=== PATIENT | male | born 1960 | race Caucasian/White ===

== ENCOUNTER → 2016-11-29 | Outpatient (CLI) | payer OTHER ==
[2016-11-29 14:53] LABS: CHCM 35.5; HCT 44.5 % (39.0-53.0); HDW 2.68; MCH 31.5 pg (25.0-35.0); MCHC 35.9 g/dL (31.0-37.0); MCV 87.7 fL (80.0-100.0); Mean Platelet Volume 7.3; RBC 5.07 m/uL (4.30-5.90); RDW 13.5 % (11.5-15.5); WBC 7.6 k/uL (3.8-10.6)
[2016-11-29 14:55] LABS: Appearance,Urine Clear (Clear); Bacteria,Urine Rare /hpf; Bilirubin,Urine Negative (Negative); Glucose,Urine (UA) Negative (Negative); Ketones,Urine Negative (Negative); Leukocyte Esterase,Urine Negative (Negative); Nitrite,Urine Negative (Negative); PH, Urine 5.5 (5.0-8.0); Particle Count 1096; Protein,Urine Negative (Negative); RBC,Urine 1 /hpf (0-5); Specific Gravity,Urine 1.019 (1.001-1.035); UA Billing (MACRO vs. MICRO) MICRO; WBC,Urine 1 /hpf (0-5)
[2016-11-29 15:00] LABS: ALT 37 U/L (21-72); AST 29 U/L (17-59); Alkaline Phosphatase 69 U/L (38-126); Anion Gap 9 mmol/L; Blood Urea Nitrogen 18 mg/dL (9-20); Calcium 9.1 mg/dL (8.4-10.2); Carbon Dioxide 26 mmol/L (22-30); Chloride 109 mmol/L (98-107); Glucose 149 mg/dL (74-99); Non-African American GFR(MDRD) 60 (>60 ml/min/1.73 sqM); Potassium 4.4 mmol/L (3.5-5.1); Sodium 144 mmol/L (137-145); Total Bilirubin 1.1 mg/dL (0.2-1.3); Total Protein 6.9 g/dL (6.3-8.2)
[2016-11-29 15:02] LABS: INR 1.1 (<1.1); Partial Thromboplastin Time 24.7 sec (22.0-30.0); Prothrombin Time 10.7 sec (9.0-12.0)
== END | disposition home or self-care (01) ==
LOC: LABPAT 14:15
PROVIDERS: ATTEND Orthopaedic Surgery
DX: Z01.810 Encounter for preprocedural cardiovascular examination (principal); Z01.812 Encounter for preprocedural laboratory examination
CPT/HCPCS: 80053; 81001; 85027; 85610; 85730; 87070

== ENCOUNTER 2016-12-03 12:09 | Inpatient (IN) | payer OTHER ==
[2016-11-30 16:40] VITALS: BMI 36.6
[~2016-12-03 12:09] MED LIST: ACETAMINOPHEN TAB 500 MG TAB PO ONE; HYDROmorphone 1 MG/ML 1 ML SYRINGE IVP PRN; LIDOCAINE 1% 20 ML VIAL (10MG/ML) FOR IV START INTRADERMA PRN; MELOXICAM 7.5 MG TAB PO ONE; MIDAZOLAM 2 MG/2 ML VIAL IV PRN; ONDANSETRON 4 MG/2 ML VIAL IVP ONE; ROPIVACAINE 246.25 MG, EPINEPHrine 0.5 MG, KETOROLAC 30 MG, cloNIDine HCL/PF 80 MCG, WA... MISCELLANE ONE; TRANEXAMIC ACID 1,000 MG in SODIUM CHLORIDE 0.9% 100 ML IVPB ONE; ceFAZolin 3 GM in SODIUM CHLORIDE 0.9% 100 ML IVPB ONE; fentaNYL (PF) 50 MCG/ML 20 ML VIAL IVP PRN
[2016-12-03] MEDS: LACTATED RINGERS 1,000 ML IV SCH (13:07)
[2016-12-03] MEDS ORDERED: PROPOFOL 10 MG/ML 20 ML VIAL IV ONE (15:04)
[2016-12-03] MEDS ORDERED: MIDAZOLAM 2 MG/2 ML VIAL ONE (15:04)
[2016-12-03] MEDS ORDERED: fentaNYL (PF) 50 MCG/ML 2 ML AMP ONE (15:04)
[2016-12-03] MEDS ORDERED: LIDOCAINE 1% INJ 10MG/ML (20 ML MDV) ONE (15:04)
[2016-12-03] MEDS ORDERED: PHENYLEPHRINE-0.9% NACL SYG 1 MG/10 ML SYRINGE ONE (15:04)
[2016-12-03] MEDS ORDERED: diphenhydrAMINE 50 MG/ML 1 ML VIAL ONE (15:04)
[2016-12-03] MEDS ORDERED: TRANEXAMIC ACID 1,000 MG/10 ML VIAL ONE (15:04)
[2016-12-03] MEDS ORDERED: SODIUM CHLORIDE 0.9% 100 ML BAG ONE (15:04)
[2016-12-03] MEDS ORDERED: ROPIVACAINE 1,100 MG, SODIUM CHLORIDE 0.9% 330 ML MISCELLANE PRN ×2 (15:10)
--- NOTE | 2016-12-03 15:11 | P.ONQ ---
Anesthesiology Proc Note - PNB - Peripheral Nerve Block Performed Left Adductor Canal Indication: Acute Post-Operative Pain, Requested by physician (kar [email or web address]) Sedation Type: Sedate with meaningful contact maintained Preparation: Sterile Dressing Position: Supine Catheter: Indwelling Needle Types: Other (see comment) (tomás) Needle Size: 100mm (4") Needle Gauge: 18 Technique: Ultrasound Injectate: 0.5% Ropivacaine (see comment for volume) (22cc) Blood Aspirated: No Pain Paresthesia on Injection Noted: No Resistance on Injection: Normal Events: Uneventful and Well Tolerated
[2016-12-03] MEDS ORDERED: CLINDAMYCIN 1,800 MG in SODIUM CHLORIDE 0.9% IRRIGATIO 3,000 ML IRRIGATION ONE (15:51)
[2016-12-03] MEDS ORDERED: LACTATED RINGERS 1,000 ML IV ONE (16:02)
--- NOTE | 2016-12-03 16:39 | P.OP ---
Date of Procedure: 12/03/16 Preoperative Diagnosis: Severe osteoarthritis left knee Postoperative Diagnosis: Severe osteoarthritis left knee Procedure(s) Performed: Left total knee arthroplasty Implants: Walsh and Nephew Oxinium femoral component size 6, left Walsh & Nephew Alina II left nonporous tibial baseplate size 6 Walsh & Nephew size 9 mm Legion XLPE high flexion articular insert, size 5-6 Walsh & Nephew Alina II resurfacing patellar component, 35 mm All components were cemented using Jose bone cement.. The articulation is ceramic on polyethylene. Anesthesia: spinal Surgeon: Bi Almonte Low Voltage Technician #1: Anat Waite Estimated Blood Loss (ml): 50 Pathology: other (Bone and cartilage) Condition: stable Disposition: PACU Indications for Procedure: After failure of conservative treatment we discussed the surgical and nonsurgical treatment options at length. Patient wishes to proceed with a total knee arthroplasty. Complications specific to this procedure were discussed at length, including but not limited to infection, bleeding, stiffness , and nerve injury. Patient is aware of all these complications and informed consent was obtained Operative Findings: The operative findings are consistent with severe osteoarthritis of the left knee Description of Procedure: Patient was seen in the preoperative area consent was reviewed and operative site was marked with a skin marker. An adductor canal pain catheter was placed by anesthesia in the preoperative area. Patient was then brought to the operating room and given preoperative antibiotics intravenously. A spinal anesthetic was administered by the anesthesia department. A tourniquet was placed on the upper thigh and the lower extremity was prepped and draped in usual sterile fashion. A gram of transexamic acid was given. A universal timeout was then performed which confirmed the patient's name, surgical site, ALLERGIES, and consent. The lower extremity was then exsanguinated and tourniquet was inflated to 250 mmHg. A standard and anterior midline approach to the knee was performed. The skin and subcutaneous tissue was dissected down to the patellar tendon. A medial parapatellar arthrotomy was then performed. The knee was then extended, the patellar was everted, and the knee was again flexed. Anterior horns of both menisci were excised, and a release was performed to the posterior medial aspect of the knee. On gross visual inspection, there was complete loss of articular cartilage in the medial and patellofemoral joint spaces. There was also significant cartilage damage in the lateral compartment. There were multiple periarticular osteophytes which were then removed with a Ronguer. The femoral canal was then opened with the appropriate drill, and the intramedullary femoral cutting guide was then placed and set for 4 of valgus. The distal femoral cutting block was then pinned in place, and the distal femur was then cut. The cutting block was then removed and the cut was checked for flatness. Next, the sizing guide was then placed and set for 3 external rotation based off of the epicondylar axis and Whitesides line. After the femur was sized, the appropriate 4-in-1 cutting block was then pinned in place. The anterior condyles were cut without notching. The posterior and chamfer cuts were performed while protecting the collateral ligaments. The cutting block was then removed, and the femoral canal was plugged with autologous bone. Attention was then directed to the tibia. The remaining ACL was removed with a Ronguer, and the tibia was then gently subluxed forward with a large bent knee retractor. Any remaining menisci was excised. The posterior lateral corner was cauterized in order to cauterize the lateral geniculate artery. The extra medullary tibial cutting guide was then placed, set for the appropriate rotation , slope, and depth of resection. The proximal tibia cutting guide was then pinned in place. Proximal tibia was then cut and sized. Next trials were then placed with the appropriate-sized insert. The knee was able to fully extend and flex to 130 and was stable throughout all range of motion. The knee was then extended, patella everted. Patella was then measured, and then using an osteotomy guide, the patella was cut at the appropriate level. The patella was then measured and drilled and the patella trial was then placed. The knee was then taken through range of motion with the patella trial and the patella tracked normally. The knee was then extended patella trial was then removed and the patella was everted. Knee was then flexed and lug holes were drilled through the femoral trial and the femoral trial was then removed. The tibial was then exposed, and the tibial broach guide was then pinned in place after it was set for the appropriate rotation to allow for the most coverage without overhang. The tibia was then reamed and broached. The cut surfaces of bone were then irrigated with pulsatile lavage. The posterior structures were injected with the ropivacaine solution. The knee was also irrigated with Irrisept solution. The components were then opened, the cement was mixed, and the components were then cemented in place. The cement was allowed to harden with the knee in full extension. While the cement was hardening, the remaining soft tissues were then injected with a ropivacaine solution, which consisted of 246.25 mg of ropivacaine, 0.5 mg of epinephrine, 30 mg of Toradol, 80 g of clonidine, and 48.45 mL of sterile water, for a total of 100 mL of fluid injected. After the cemented hardened. The tourniquet was released, and hemostasis was obtained. A second gram of transexamic acid was given. The knee was again irrigated. The knee was again taken through range of motion and found to be stable throughout all range of motion of 0-130 , and the patella tracked normally. The fascia was then closed with #2 strata fix suture. The subcutaneous tissue was closed with 3-0 Vicryl and 3-0 strata fix. Dermabond tape was used for the skin and placed with the knee in flexion. The patient was placed in a sterile dressing. Patient was then transferred to recovery room in stable condition. The printer assistant SHANTELL Lopez was required due the complexity surgery and the need for a skilled registered nurse surgical services. She assisted in positioning, draping, retraction, and closure of the wound.
[2016-12-03] MEDS ORDERED: BISACODYL 10 MG SUPP RECTAL PRN (17:10)
[2016-12-03] MEDS ORDERED: NALOXONE 0.4 MG/ML 1 ML VIAL IV PRN (17:10)
[2016-12-03] MEDS ORDERED: DIAZEPAM 5 MG TAB PO PRN ×2 (17:10)
[2016-12-03] MEDS ORDERED: ONDANSETRON 4 MG/2 ML VIAL IVP PRN (17:10)
[2016-12-03] MEDS ORDERED: MAGNESIUM HYDROXIDE 2,400 MG/10 ML CUP PO PRN (17:10)
[2016-12-03] MEDS ORDERED: NA PHOS,M-B/NA PHOS,DI-BA 133 ML ENEMA RECTAL PRN (17:10)
[2016-12-03] MEDS ORDERED: HYDROmorphone 1 MG/ML 1 ML SYRINGE IVP PRN (17:10)
[2016-12-03] MEDS ORDERED: HYDROcodone/APAP 5-325MG 1 EACH TAB PO PRN (17:10)
[2016-12-03] MEDS ORDERED: IPRATROPIUM-ALBUTEROL 3 ML NEB INHALATION STA (17:15)
[2016-12-03] MEDS ORDERED: IPRATROPIUM-ALBUTEROL 3 ML NEB INHALATION PRN (17:19)
[2016-12-03] MEDS ORDERED: ALBUTEROL NEBULIZED 2.5 MG/3 ML INHALATION ONE (17:30)
[2016-12-03 17:42] VITALS: RESP 16
--- NOTE | 2016-12-03 17:47 | XR ---
EXAMINATION TYPE: XR knee limited LT DATE OF EXAM: 12/03/2016 COMPARISON: NONE HISTORY: . Left knee TECHNIQUE: 2 views left knee FINDINGS: Tibial and femoral components of in place. Postsurgical changes are within the. Stable meta diaphyseal bone sclerosis is present IMPRESSION: 1. No acute fractures post knee replacement.
[2016-12-03] MEDS: HYDROcodone/APAP 5-325MG 1 EACH TAB PO PRN (19:39)
[2016-12-03] MEDS: SODIUM CHLORIDE 0.9% 1,000 ML IV SCH (19:39)
[2016-12-03] MEDS: hydrOXYzine PAMOATE 25 MG CAP PO PRN (19:40)
[2016-12-03] MEDS: ASPIRIN 325 MG TAB PO SCH (19:40)
[2016-12-03] MEDS: SENNOSIDES-DOCUSATE SODIUM 1 EACH TAB PO SCH (19:41)
[2016-12-03] MEDS: HYDROmorphone 1 MG/ML 1 ML SYRINGE IVP PRN (20:37)
[2016-12-03] MEDS: amLODIPine 5 MG TAB PO SCH (20:39)
[2016-12-03] MEDS: ceFAZolin 3 GM in SODIUM CHLORIDE 0.9% 100 ML IVPB SCH (23:29)
[2016-12-04] MEDS: LACTATED RINGERS 1,000 ML IV SCH ×2 (00:57→21:10)
[2016-12-04] MEDS: hydrOXYzine PAMOATE 25 MG CAP PO PRN ×2 (03:05→22:44)
[2016-12-04] MEDS: HYDROcodone/APAP 5-325MG 1 EACH TAB PO PRN ×4 (03:05→22:44)
[2016-12-04 07:09] LABS: Basophils % (A) 0 %; CH 30.6; CHCM 34.5; Eosinophils # (A) 0.3 k/uL (0-0.7); Eosinophils % (A) 3 %; HCT 40.8 % (39.0-53.0); HDW 2.74; HGB 13.9 gm/dL (13.0-17.5); Luc # (Auto) 0.11; Luc % (Auto) 1; Lymphocytes # (A) 1.3 k/uL (1.0-4.8); Lymphocytes % (A) 14 %; MCH 30.3 pg (25.0-35.0); MCHC 34.1 g/dL (31.0-37.0); Mean Platelet Volume 7.6; Monocytes # (A) 0.4 k/uL (0-1.0); Monocytes % (A) 4 %; Neutrophils # (A) 7.3 k/uL (1.3-7.7); Neutrophils % (A) 77 %; RBC 4.59 m/uL (4.30-5.90); RDW 13.7 % (11.5-15.5); WBC 9.5 k/uL (3.8-10.6)
[2016-12-04] MEDS: SODIUM CHLORIDE 0.9% 1,000 ML IV SCH ×2 (08:50→19:49)
[2016-12-04] MEDS: ASPIRIN 325 MG TAB PO SCH ×2 (08:51→19:49)
[2016-12-04] MEDS: ATORVASTATIN 10 MG TAB PO SCH (08:51)
[2016-12-04] MEDS: ATENOLOL 25 MG TAB PO SCH (08:51)
[2016-12-04] MEDS: MELOXICAM 7.5 MG TAB PO SCH (08:51)
[2016-12-04] MEDS: ceFAZolin 3 GM in SODIUM CHLORIDE 0.9% 100 ML IVPB SCH (08:56)
[2016-12-04] MEDS: HYDROmorphone 1 MG/ML 1 ML SYRINGE IVP PRN ×2 (10:56→19:47)
--- NOTE | 2016-12-04 12:16 | P.PN ---
Subjective Principal diagnosis: Status post left total knee arthroplasty for severe left knee osteoarthritis Patient is very pleasant 56-year-old male who is seen and examined the bedside for follow-up evaluation after undergoing a left total knee arthroplasty with Dr. Bi Almonte yesterday, 12/03/2016. Postsurgically patient has had some pain at the surgical site but states his pain has been well-controlled. He's been able to ambulate to the bathroom without significant difficulty. His dressing over the left knee has remained clean, dry, and intact. He is eating and voiding significant difficulty. He is not currently experiencing any abdominal pain. He denies any nausea, vomiting, fever, or chills. Overall, he feels he is progressing postsurgically. If he continues to progress throughout the day, he feels he may be ready for discharge home tomorrow, 12/05/2016. Prescription has been signed for CPM machine. Objective - Vital Signs Vital signs: Vital Signs Temp 98.0 F 12/04/16 07:00 Pulse 77 12/04/16 07:00 Resp 16 12/04/16 07:00 BP 124/81 12/04/16 07:00 Pulse Ox 92 L 12/04/16 07:00 Intake & Output 12/03/16 12/04/16 12/04/16 18:59 06:59 18:59 Intake Total 1805 210 180 Output Total 50 600 Balance 1755 -390 180 Weight 122.47 kg Intake: IV 1805 210 Sodium Chloride 0.9% 1, 210 000 ml @ 70 mls/hr IV . [id number] [facility] Rx#:[id number] Oral 180 Output: Urine 600 Estimated Blood Loss 50 Other: # Voids 1 - Exam Physical Exam Total Knee Arthroplasty: Status post surgical day number 1 Patient is awake, alert, and oriented 3 Vital signs stable Good chest excursion with deep inspiration and expiration Abdomen soft nontender No signs or symptoms of DVT; no calf pain Dressing is clean, dry, and intact; no erythema, purulence, or signs of infection Patient has full foot and ankle motion without difficulty bilateral lower extremities Dorsiflexion, plantar flexion, and extensor hallucis longus positive sustained bilaterally Neurovascular status left lower extremity intact Capillary refill lower extremity is bilaterally less than 2 seconds - Labs CBC & Chem 7: 12/04/16 06:33 Assessment and Plan (1) Status post total knee replacement, left Status: Acute (2) Osteoarthritis of left knee Status: Acute Plan: Assessment: Status post left total knee arthroplasty for left knee osteoarthritis Plan: 1. Patient to remain weight-bear as tolerated on the left lower extremity; patient may work with physical therapy to increase mobility and ambulation 2. Continue pain control 3. Medicine to continue following the patient for his other medical issues 4. Patient to continue with anticoagulation therapy with aspirin 325 mg twice a day 5. We'll continue to follow the patient; If the patient continues to improve, we'll plan for discharge home tomorrow, 12/05/2016 6. Patient will plan to follow-up with Dr. Bi Almonte at [facility] in 2 weeks following discharge Time with Patient: Less than 30
[2016-12-04] MEDS: PANTOPRAZOLE 40 MG TABLET PO SCH (17:27)
[2016-12-04] MEDS: amLODIPine 5 MG TAB PO SCH (19:49)
[2016-12-04] MEDS: SENNOSIDES-DOCUSATE SODIUM 1 EACH TAB PO SCH (19:49)
--- NOTE | 2016-12-04 22:08 | CONS ---
PRINCIPAL DIAGNOSES: Left total knee arthroplasty. HISTORY OF PRESENT ILLNESS: This is a 56-year-old male patient who presented to the hospital for an elective left total knee arthroplasty. This is postoperative day 1. He is doing well. He has been up ambulating with the assistance of Physical Therapy. His appetite is good. He is afebrile and hemodynamically stable. His pain is under good control. He has been passing flatus, but no bowel movement as of yet. He is urinating without any difficulties. REVIEW OF SYSTEMS: Patient denies seizures, syncope or loss of consciousness. Denies diplopia or visual disturbances. Denies dysphagia. Denies shortness breath, cough or wheeze. Denies chest pain, angina or palpitations. Denies abdominal pain, nausea, vomiting, constipation or diarrhea. Denies dysuria or urinary retention. Denies fever or chills. PAST MEDICAL HISTORY: Osteoarthritis, hypertension, hyperlipidemia. PAST SURGICAL HISTORY: Knee arthroscopy. FAMILY HISTORY: No family history of coronary artery disease or diabetes. Positive for hypertension and arthritis. SOCIAL HISTORY: Patient is a current every day smoker, smokes approximately 1 pack per day. Occasional alcohol use. Denies illicit drug use. ALLERGIES: AMOXICILLIN. HOME MEDICATIONS: 1. Atenolol 25 mg daily. 2. Lipitor 10 mg daily. 3. Norvasc 5 mg at bedtime. 4. Aspirin 81 mg daily. PHYSICAL EXAMINATION: VITAL SIGNS: Temperature is 99.2, heart rate is 93, respiratory rate is 16, blood pressure is 127/71, pulse oximetry is 97% on room air. GENERAL: The patient is seen lying in bed in no acute distress. HEENT: Head is normocephalic, atraumatic. Pupils equal. Conjunctivae clear. NECK: Supple, no JVD. LUNGS: Clear to auscultation. HEART: Regular rate and rhythm. ABDOMEN: Soft, nontender, nondistended. Bowel sounds positive. EXTREMITIES: No lower extremity edema is noted. Left knee incision is covered with a dry dressing. No breakthrough bleeding or drainage is noted. Ice pack is in place. NEURO: The patient is alert and oriented x3. Speech is clear, interactive and appropriate. No tremors noted. LABS: WBC count is 9.5, hemoglobin 13.9, platelet count is 155. ASSESSMENT/PLAN: 1. Status post left total knee arthroplasty. Continue with pain medication as needed. Encourage incentive spirometry. Continue with physical and occupational therapy. 2. Hypertension. Continue with Norvasc 5 mg at bedtime and atenolol 25 mg daily. 3. Hyperlipidemia. Continue with Lipitor 10 mg at bedtime. 4. Tobacco abuse. The patient declined NicoDerm patch at this time. 5. Gastrointestinal prophylaxis. Will add Prilosec. 6. Deep venous thrombosis prophylaxis with Coumadin dosing per Orthopedic Service. Thank you very kindly for this consultation. I will be more than happy to follow this patient for his medical needs while he is here in the hospital. FRANCIS
[2016-12-05 02:13] VITALS: TEMP 98.1
[2016-12-05] MEDS: HYDROcodone/APAP 5-325MG 1 EACH TAB PO PRN (04:15)
[2016-12-05] MEDS: hydrOXYzine PAMOATE 25 MG CAP PO PRN (04:15)
[2016-12-05 07:37] LABS: Basophils % (A) 0 %; CH 30.6; CHCM 33.7; Eosinophils # (A) 0.3 k/uL (0-0.7); Eosinophils % (A) 3 %; HCT 42.3 % (39.0-53.0); HDW 2.58; Luc # (Auto) 0.12; Luc % (Auto) 1; Lymphocytes # (A) 1.4 k/uL (1.0-4.8); Lymphocytes % (A) 17 %; MCH 30.1 pg (25.0-35.0); MCHC 33.1 g/dL (31.0-37.0); MCV 91.2 fL (80.0-100.0); Mean Platelet Volume 7.9; Monocytes # (A) 0.6 k/uL (0-1.0); Monocytes % (A) 7 %; Neutrophils % (A) 72 %; RBC 4.64 m/uL (4.30-5.90); RDW 13.9 % (11.5-15.5); WBC 8.4 k/uL (3.8-10.6); WBC (Perox) 8.17
[2016-12-05 07:59] LABS: Anion Gap 8 mmol/L; Blood Urea Nitrogen 13 mg/dL (9-20); Calcium 8.4 mg/dL (8.4-10.2); Carbon Dioxide 23 mmol/L (22-30); Chloride 109 mmol/L (98-107); Glucose 114 mg/dL (74-99); Non-African American GFR(MDRD) >60 (>60 ml/min/1.73 sqM); Potassium 4.5 mmol/L (3.5-5.1); Sodium 140 mmol/L (137-145)
[2016-12-05] MEDS: HYDROmorphone 1 MG/ML 1 ML SYRINGE IVP PRN (08:15)
[2016-12-05] MEDS: ASPIRIN 325 MG TAB PO SCH (08:16)
[2016-12-05] MEDS: ATORVASTATIN 10 MG TAB PO SCH (08:16)
[2016-12-05] MEDS: PANTOPRAZOLE 40 MG TABLET PO SCH (08:16)
[2016-12-05] MEDS: ATENOLOL 25 MG TAB PO SCH (08:16)
[2016-12-05] MEDS: MELOXICAM 7.5 MG TAB PO SCH (08:17)
--- NOTE | 2016-12-05 08:18 | P.PN ---
Progress Note - Text The patient is status post left adductor canal catheter placement. The catheter was placed for postoperative pain control, status post total left arthroplasty. Ropivacaine 0.2% is infusing at 12 mLs per hour. The patient has no complaints of left lower extremity numbness or weakness. Patient's VAS score is 3-4 -10. Assessment: Patient's adductor canal catheter is in place and working appropriately. Plan: continue infusion and adjust it as needed.
[2016-12-05] MEDS ORDERED: HYDROcodone/APAP 7.5-325MG 1 EACH TAB PO ONE ×2 (10:40→16:52)
--- NOTE | 2016-12-05 10:56 | P.DS ---
Providers Date of admission: 12/03/16 12:09 Expected date of discharge: 12/05/16 Attending physician: Bi Almonte Consults: 12/03/16 18:04 Consult Physician Routine Consulting Provider: Silvia Gracia Consult Reason/Comments: medical management Do you want consulting provider notified?: Yes Primary care physician: Rj Gudino - Discharge Diagnosis(es) (1) Status post total knee replacement, left Current Visit: Yes Status: Acute (2) Osteoarthritis of left knee Current Visit: Yes Status: Acute Hospital Course: This is a pleasant 56-year-old male who presented with severe osteoarthritis of the left knee who failed outpatient conservative therapy. He was admitted for a left total knee arthroplasty. The patient tolerated the procedure well and did well postoperatively. He did experience some increased pain in the left lower extremity this morning that has improved over the past couple hours. Been able to ambulate to the restroom without significant difficulty. The incision site has remained clean, dry, and intact. We'll plan to discontinue his postoperative pain control catheter that was placed by anesthesia prior to discharge. She feels at this time he is ready for discharge home today. Condition on day of discharge stable. Patient will be discharged home. Patient was cleared preoperatively for surgery by Dr. Rj Gudino. Patient currently denies any nausea, vomiting, fever, or chills. Patient is eating and voiding freely without difficulty. He may continue to weight-bear as tolerated on the left lower extremity. Continue with the CPM machine as prescribed. We discussed he will continue to keep the dressing of the left knee clean, dry, and intact. Dressing may be removed in 3 days and patient may shower without dressing at that time if the incision remains clean, dry, and intact. He may continue to elevate the left lower extremity and apply ice over the knee for comfort support as needed. He should avoid excessive activities regards to left lower extremity. Patient should refrain from driving until he feels safe to operate a motor vehicle without difficulty. He'll be given a prescription for aspirin 325 mg twice a day which the patient should take over the next 4 weeks. He will also be given a prescription for [place] 7.5 mg/325 mg 1 tablet every 6 hours as needed for pain, dispense 45 (Forty-Five). We will have him hold aspirin 81 mg daily over the next 4 weeks until he has completed his prescription for aspirin 325 mg twice a day for the next 4 weeks. Physical Exam on day of discharge: Left Total Knee Arthroplasty Status post surgical day number 2 Patient is awake, alert, and oriented 3 Vital signs stable Good chest excursion with deep inspiration and expiration Abdomen soft nontender No signs or symptoms of DVT; no calf pain Dressing is clean, dry, and intact; no erythema, purulence, or signs of infection Patient has full foot and ankle motion without difficulty bilateral lower extremities Dorsiflexion, plantar flexion, and extensor hallucis longus positive sustained bilaterally Neurovascular status left lower extremity intact Capillary refill lower extremity is bilaterally less than 2 seconds Pain pump for the left lower extremity currently intact and will plan be discontinued prior to discharge Procedures: Left Total knee arthroplasty Patient Condition at Discharge: Stable Plan - Discharge Summary New Discharge Prescriptions: New Aspirin 325 mg PO BID #28 tab HYDROcodone/APAP 7.5-325MG [Ridgeley 7.5-325] 1 each PO Q6HR PRN #45 tab PRN Reason: Pain No Action Aspirin 81 mg PO DAILY amLODIPine [Norvasc] 5 mg PO HS Atorvastatin [Lipitor] 10 mg PO DAILY Atenolol 25 mg PO DAILY Discharge Medication List Aspirin 81 mg PO DAILY 02/19/16 [History] amLODIPine [Norvasc] 5 mg PO HS 02/19/16 [History] Atenolol 25 mg PO DAILY 12/03/16 [History] Atorvastatin [Lipitor] 10 mg PO DAILY 12/03/16 [History] Aspirin 325 mg PO BID #28 tab 12/05/16 [Rx] HYDROcodone/APAP 7.5-325MG [Ridgeley 7.5-325] 1 each PO Q6HR PRN #45 tab 12/05/16 [ Rx] Follow up Appointment(s)/Referral(s): [facility], [NON-STAFF] - As Needed Bi Almonte DO [Doctor of Osteopathic Medicine] - 2 Weeks (Patient may follow-up with Dr. Bi Almonte at [facility] in 2 weeks following discharge. ) Activity/Diet/Wound Care/Special Instructions: 1. Weight-bear as tolerated on the left lower extremity 2. Continue CPM machine as prescribed 3. Keep dressing on the left knee clean, dry, and intact 4. Dressing may be removed in 3 days and patient may shower without a dressing at that time if incision remains clean, dry, and intact 5. May elevate left lower extremity and apply ice over the knee for comfort support as needed 6. Discontinue pain pump of the left lower extremity prior to discharge 7. Hold aspirin 81 mg daily over the next 4 weeks until completion of prescription for aspirin 325 mg twice a day Discharge Disposition: HOME SELF-CARE
[2016-12-05] MEDS: SODIUM CHLORIDE 0.9% 1,000 ML IV SCH (13:59)
[2016-12-05 14:35] VITALS: BP 113/76; PULSE 61
--- NOTE | 2016-12-05 22:37 | PN ---
HISTORY OF PRESENT ILLNESS: This is a 56-year-old male patient who presented to the hospital for elective left total knee arthroplasty. This is postoperative day 2. He is doing well. He did state that he had a severe amount of pain this morning and his [place] was increased to 7.5. His pain is under better control at this time. His appetite is good. He is having no difficulties urinating. He is passing flatus but has not had a bowel movement today. He has been up ambulating with physical therapy. He has some concerns about being discharged home today secondary to pain control. PHYSICAL EXAMINATION: VITAL SIGNS: Temperature is 98.1, heart rate is 73, respiratory rate 16, blood pressure is 129/82, pulse oximetry is 93% on room air. GENERAL: The patient is seen sitting up in bed in no acute distress. LUNGS: Clear to auscultation, diminished posteriorly. Heart is regular rate and rhythm. ABDOMEN: Soft, nontender. Bowel sounds positive. EXTREMITIES: No lower extremity edema is noted. Left knee incision is covered with dry dressing. No breakthrough bleeding or drainage is noted. Ice pack is in place under netting. NEURO: Patient is alert and oriented x3. Speech is clear, interactive and appropriate. No tremors noted. LABS: Sodium is 140, potassium 4.5, BUN is 13, creatinine is 1.04. WBC count is 8.4, hemoglobin 14.0, platelet count is 154. ASSESSMENT: 1. Status post left total knee arthroplasty. Continue pain medication as needed. Encourage incentive spirometry. Continue physical and occupational therapy. 2. Hypertension. Continue Norvasc and atenolol. 3. Hyperlipidemia, continue Lipitor. 4. Tobacco abuse. The patient declined Nicoderm patch. Complete smoking cessation was discussed with him. 5. Gastrointestinal prophylaxis with Prilosec. 6. Deep venous thrombosis prophylaxis with Coumadin dosing orthopedic service. DISCHARGE PLAN: The patient is reluctant for discharge home this morning. Reassurance was given. If the patient continues to stay in the hospital, we will continue to monitor him closely and make adjustments in his pain medication as needed. I will leave this up to the orthopedic service.
== END 2016-12-05 17:39 | disposition home or self-care (01) | DRG 470 ==
LOC: 2ORMAIN 12:09 → 3SUR 17:10
PROVIDERS: ADMIT Orthopaedic Surgery; ATTEND Orthopaedic Surgery
PROC: 0SRD0J9 Replacement of Left Knee Joint with Synthetic Substitute, Cemented, Open Approach (ICD-10-PCS; principal; 2016-12-03 14:50)
DX: M17.12 Unilateral primary osteoarthritis, left knee (principal); I10 Essential (primary) hypertension; M25.762 Osteophyte, left knee; E78.5 Hyperlipidemia, unspecified; I25.10 Atherosclerotic heart disease of native coronary artery without angina pectoris; G47.33 Obstructive sleep apnea (adult) (pediatric); J44.9 Chronic obstructive pulmonary disease, unspecified; G89.18 Other acute postprocedural pain; E78.00 Pure hypercholesterolemia, unspecified; E66.9 Obesity, unspecified; F17.210 Nicotine dependence, cigarettes, uncomplicated; Z79.899 Other long term (current) drug therapy; Z79.82 Long term (current) use of aspirin; Z80.7 Family history of other malignant neoplasms of lymphoid, hematopoietic and related tissues; Z82.61 Family history of arthritis; Z82.49 Family history of ischemic heart disease and other diseases of the circulatory system; Z88.0 Allergy status to penicillin; Z71.6 Tobacco abuse counseling; Z68.36 Body mass index [BMI] 36.0-36.9, adult
CPT/HCPCS: 80048; 85025; 88300; 93005

== ENCOUNTER → 2017-08-17 | Day surgery (SDC) | payer OTHER ==
[2017-08-12 13:37] VITALS: BMI 35.2
[~2017-08-17] MED LIST changes: -ACETAMINOPHEN TAB 500 MG TAB PO ONE; +ALPRAZolam 0.25 MG TAB PO PRN; +ALPRAZolam 0.5 MG TAB PO PRN; +ASPIRIN 325 MG TAB PO STA; +ATORVASTATIN 80 MG TAB PO STA; +HEPARIN SODIUM 1,000 UN/ML (10ML VL) ONE; -HYDROmorphone 1 MG/ML 1 ML SYRINGE IVP PRN; +IOHEXOL 350 MG/ML (PER ML) 100ML BTL INJ ONE; -LIDOCAINE 1% 20 ML VIAL (10MG/ML) FOR IV START INTRADERMA PRN; +LIDOCAINE 2% INJ 20 MG/ML (20 ML MDV) ONE; +LIDOCAINE 2% INJ 20 MG/ML SQ ONE; -MELOXICAM 7.5 MG TAB PO ONE; -MIDAZOLAM 2 MG/2 ML VIAL IV PRN; +MIDAZOLAM 2 MG/2 ML VIAL IVP ONE; +MIDAZOLAM 2 MG/2 ML VIAL ONE; +NITROGLYCERIN SL TABS 0.4 MG TAB SUBLINGUAL PRN; -ONDANSETRON 4 MG/2 ML VIAL IVP ONE; -ROPIVACAINE 246.25 MG, EPINEPHrine 0.5 MG, KETOROLAC 30 MG, cloNIDine HCL/PF 80 MCG, WA... MISCELLANE ONE; +RX INFO: IV CONTRAST WAS GIVEN 1 EACH MISC MISCELLANE PRN; +SODIUM CHLORIDE 0.9% 1,000 ML IV SCH; +SODIUM CHLORIDE 0.9% 1,000 ML in EMPTY BAG 1 BAG IV ONE; -TRANEXAMIC ACID 1,000 MG in SODIUM CHLORIDE 0.9% 100 ML IVPB ONE; +VERAPAMIL 2.5 MG/ML 2 ML AMP ONE; +VERAPAMIL SYRINGE (5 MG/10 ML) INTRAARTER ONE; -ceFAZolin 3 GM in SODIUM CHLORIDE 0.9% 100 ML IVPB ONE; +diphenhydrAMINE 50 MG/ML 1 ML VIAL IVP ONE; +diphenhydrAMINE 50 MG/ML 1 ML VIAL ONE; -fentaNYL (PF) 50 MCG/ML 20 ML VIAL IVP PRN
[2017-08-17 09:32] VITALS: TEMP 97.5
[2017-08-17 09:44] LABS: Basophils # (A) 0.1 k/uL (0-0.2); Basophils % (A) 1 %; Eosinophils # (A) 0.3 k/uL (0-0.7); Eosinophils % (A) 4 %; HCT 47.6 % (39.0-53.0); HGB 15.8 gm/dL (13.0-17.5); Lymphocytes % (A) 24 %; MCH 29.1 pg (25.0-35.0); MCHC 33.2 g/dL (31.0-37.0); MCV 87.6 fL (80.0-100.0); Mean Platelet Volume 7.6; Monocytes # (A) 0.4 k/uL (0-1.0); Monocytes % (A) 5 %; Neutrophils # (A) 5.4 k/uL (1.3-7.7); Neutrophils % (A) 66 %; Platelet Count 196 k/uL (150-450); RBC 5.43 m/uL (4.30-5.90); RDW 13.3 % (11.5-15.5); WBC 8.3 k/uL (3.8-10.6)
[2017-08-17 10:04] LABS: Anion Gap 10 mmol/L; Blood Urea Nitrogen 19 mg/dL (9-20); Carbon Dioxide 24 mmol/L (22-30); Chloride 107 mmol/L (98-107); Glucose 130 mg/dL (74-99); Potassium 4.4 mmol/L (3.5-5.1); Sodium 141 mmol/L (137-145)
--- NOTE | 2017-08-17 12:12 | CC ---
CARDIAC CATHETERIZATION REPORT DATE OF SERVICE: 08/17/2017. PROCEDURE: Left heart catheterization and coronary angiography. PERFORMED BY: Dr. Sal Johnston. ANESTHESIA: Moderate conscious sedation time was 23 minutes with a combination of Versed and Benadryl. Oxygen saturation and vital signs were monitored closely. CLINICAL INFORMATION: Mr. Hiram Taylor is a gentleman with history of hypertension, hyperlipidemia, who underwent a cardiac cath for an abnormal stress test in 2016. He did not have significant disease, but had a recent episode of syncope and subsequent workup revealed a lateral wall ischemia. Therefore, he was advised cardiac catheterization. Risks, benefits, options and rationale were explained to the patient and and patient was brought in for the procedure electively. PROCEDURE NOTE: Under local anesthesia and strict aseptic precautions, a 6-St Helenian introducer was placed in the right radial artery. Using an Ultimate 2 catheter, I performed selective coronary angiography and a pigtail catheter was used to check LV pressure but LV-gram was not performed. The sheath was taken out and TR band applied as per protocol and he was sent to the room in a stable condition. CARDIAC CATHETERIZATION FINDINGS: Left ventricular end-diastolic pressure was 12 mmHg without any gradient across aortic valve. CORONARY ANGIOGRAPHY FINDINGS: 1. RIGHT CORONARY ARTERY: Nondominant vessel, has minor irregularities, no significant disease, supplies a limited amount of myocardium. Angiographically, there is no significant change. 2. LEFT MAIN CORONARY ARTERY: This is a short patent vessel that bifurcates into LAD and circumflex. There is no significant disease in the left main coronary artery. 3. LEFT ANTERIOR DESCENDING CORONARY ARTERY: This is a good caliber vessel, extends along the anterior wall. It gives off 2 diagonal branches and supplies a sizable amount of myocardium. The vessel runs all the way to the apex and supplying the inferoapical portion of left ventricle as well. The distal one-fifth of the vessel has mild diffuse narrowing. LAD has no significant disease and the diagonal branches are also free of significant disease. 4. LEFT POSTERIOR CIRCUMFLEX CORONARY ARTERY: Technically a very dominant vessel, gives off 2 obtuse marginal branches and another obtuse marginal somewhat distally and then trifurcates into three different branches distally which supplies the territory of PDA and PLV. The entire circumflex has minor irregularities. The first obtuse marginal has about a 35% narrowing, but no significant disease is noted. Overall, the dominant circumflex has no significant disease other than minor irregularities and this is a large distribution vessel. 5. LEFT VENTRICULOGRAM: This was not performed. FINAL IMPRESSION: This patient has normal filling pressures. He has a left dominant system. No significant disease. Mild irregularities involving the obtuse marginal. The left anterior descending artery and two diagonals are free of significant disease and a nondominant right coronary artery is also unremarkable for any significant disease. RECOMMENDATION: Results were discussed with the patient and family. Continued medical therapy with risk factor modification was advised. Patient had a positive stress test and therefore coronary angiography was performed. Apparently, the stress test is a false positive one. MMODL / IJN: [id number] /
[2017-08-17 12:34] VITALS: RESP 16
[2017-08-17 16:23] VITALS: BP 135/85; PULSE 66
== END | disposition home or self-care (01) ==
LOC: CATHCVL 09:18
PROVIDERS: ATTEND Internal Medicine Interventional Cardiology
DX: I25.110 Atherosclerotic heart disease of native coronary artery with unstable angina pectoris (principal); I10 Essential (primary) hypertension; E78.5 Hyperlipidemia, unspecified; E78.00 Pure hypercholesterolemia, unspecified; G47.33 Obstructive sleep apnea (adult) (pediatric); E66.9 Obesity, unspecified; J44.9 Chronic obstructive pulmonary disease, unspecified; F17.210 Nicotine dependence, cigarettes, uncomplicated; Z79.82 Long term (current) use of aspirin; Z79.899 Other long term (current) drug therapy; Z68.35 Body mass index [BMI] 35.0-35.9, adult
CPT/HCPCS: 93458; 80048; 85025; C1894; J2001; J2250; J1200; Q9967

== ENCOUNTER → 2017-11-02 | Outpatient (CLI) | payer OTHER ==
--- NOTE | 2017-11-02 10:20 | XR ---
EXAMINATION TYPE: XR ankle complete RT, XR foot complete RT DATE OF EXAM: 11/02/2017 CLINICAL HISTORY: Pain and swelling TECHNIQUE: Frontal, lateral and oblique images of the right ankle and foot are obtained. COMPARISON: None. FINDINGS: There is no acute fracture/dislocation evident in the right ankle. The ankle mortise appe ars within normal limits. There is some ill-defined fluid or loss of fat in the Kager's fat pad poste rior to the talus. There is no acute fracture or dislocation evident in the left foot. Hallex valgus positioning first m etatarsophalangeal joint is present. There is varus positioning distal fourth and fifth toes. [facility] ing soft tissue is unremarkable. IMPRESSION: There is fluid in anterior aspect Kager's fat pad, differential includes edema, inflamma tion, and infection. Correlate clinically.
[2017-11-02 11:01] LABS: Basophils % (A) 0 %; Eosinophils # (A) 0.2 k/uL (0-0.7); Eosinophils % (A) 2 %; HCT 50.2 % (39.0-53.0); Lymphocytes # (A) 1.9 k/uL (1.0-4.8); Lymphocytes % (A) 18 %; MCH 29.4 pg (25.0-35.0); MCHC 33.8 g/dL (31.0-37.0); Mean Platelet Volume 7.3; Monocytes # (A) 0.6 k/uL (0-1.0); Monocytes % (A) 5 %; Neutrophils # (A) 7.8 k/uL (1.3-7.7); Neutrophils % (A) 73 %; Platelet Count 205 k/uL (150-450); RBC 5.77 m/uL (4.30-5.90); RDW 13.9 % (11.5-15.5); WBC 10.7 k/uL (3.8-10.6)
[2017-11-02 11:15] LABS: Albumin 4.3 g/dL (3.5-5.0); Calcium 9.3 mg/dL (8.4-10.2); Potassium 4.8 mmol/L (3.5-5.1); Total Bilirubin 1.2 mg/dL (0.2-1.3); Total Protein 7.4 g/dL (6.3-8.2); Uric Acid 7.8 mg/dL (3.5-8.5)
--- NOTE | 2017-11-02 11:46 | US ---
EXAMINATION TYPE: US venous doppler duplex LE RT DATE OF EXAM: 11/02/2017 10:53 AM COMPARISON: NONE CLINICAL HISTORY: 57-year-old male R60.0 Localized Edema. Ankle and foot pain, swelling, no redness. Hx of left DVT in 1975. Not on blood thinners. SIDE PERFORMED: Right TECHNIQUE: The lower extremity deep venous system is examined utilizing real time linear array sonog ayanna with graded compression, doppler sonography and color-flow sonography. FINDINGS: VESSELS IMAGED: External Iliac Vein (EIV) Common Femoral Vein Deep Femoral Vein Greater Saphenous Vein * Femoral Vein Popliteal Vein Small Saphenous Vein * Proximal Calf Veins (* superficial vessels) Right Leg: Negative for DVT IMPRESSION: No evidence for DVT within the right lower extremity imaged from the groin to the upper calf.
[2017-11-02 12:34] LABS: Erythrocyte Sedimentation Rate 12 mm/hr (0-15)
== END | disposition home or self-care (01) ==
LOC: RADUSWWP 09:52
PROVIDERS: ATTEND Family Medicine
DX: E65 Localized adiposity (principal)
CPT/HCPCS: 36415; 80053; 84550; 85025; 85652

== ENCOUNTER → 2017-11-23 | Outpatient (CLI) | payer OTHER ==
--- NOTE | 2017-11-23 08:09 | CTL ---
EXAMINATION TYPE: CT Low Dose Lung DATE OF EXAM ORDERED: 11/23/2017 HISTORY: . Lung cancer screening CT DLP: 137.[address] CTDI: 4.3 mGy Automated exposure control for dose reduction was used. SCREENING VISIT: Initial COMPARISON: None TECHNIQUE: Low dose computed tomography scan was performed through the chest at 1 mm thick sections a nd reconstructed images in the coronal plane at [address] DIAGNOSTIC QUALITY: Satisfactory FINDINGS: LUNG NODULES: Right lower lobe and left lower lobe granulomas are noted and are benign. Pleural-based 5 mm right lower lung solid pulmonary nodule is seen on series 4 image 171 laterally as well as second 4 mm pleural-based solid pulmonary nodule in a similar appearing on image 178. Pleural-based noncalcifiedr solid 4 mm pulmonary nodule laterally within the left lower lobe is seen on series 4 image 205. LUNGS: COPD: Severity: Mild centrilobular Fibrosis: Severity: None Lymph nodes: No adenopathy RIGHT PLEURAL SPACE: Effusion: None Calcification: None Thickening: None Pneumothorax: None LEFT PLEURAL SPACE: Effusion: None Calcification: None Thickening: None Pneumothorax: None HEART: Heart Size: Ascending thoracic aorta is upper limits of normal measuring 3.9 cm. Heart is not enlarge d. Coronary calcification: None Pericardial effusion: None OTHER FINDINGS: Upper abdomen: There is a moderate hiatal hernia and benign calcified granulomatous parenchymal splen ic changes Bony thorax: Within the posterior lateral aspect of rib 9 there is a focal sclerotic lesion with mini mal cortical thickening measuring approximately 9 mm. This is solitary and could represent a benign e tiology such as a bone island, however surveillance is recommended as will be suggested for the above mentioned pulmonary nodules. Supraclavicular region: No adenopathy IMPRESSION: Bilateral pleural-based subcentimeter pulmonary nodules (all less than 6 mm) additionally there are benign granulomatous changes of the lungs and spleen. Overall this relates to a LUNG RADS 2 category-benign appearance or behavior-nodules with a very low likelihood of becoming a clinically active cancer due to lack of size and recommendation is for continued annual screening with low dose CT in 12 months. Additionally nonspecific sclerotic lesion within the posterior lateral aspect of rib 9 on the right is seen and could also be followed in [address] CHEST RECOMMENDATION: Continued annual screening with low dose CT in [address] LUNG RAD: Lung-Rad 2 Benign Appearance or Behavior
== END | disposition home or self-care (01) ==
LOC: RADCTMAIN 07:08
PROVIDERS: ATTEND Internal Medicine
DX: Z12.2 Encounter for screening for malignant neoplasm of respiratory organs (principal); Z87.891 Personal history of nicotine dependence

== ENCOUNTER 2017-11-29 17:58 | Emergency (ER) | payer OTHER ==
[2017-11-29 18:32] VITALS: RESP 18
[2017-11-29] MEDS ORDERED: ACET/COD 300 MG/30 MG STARTER PACK 6 TAB BTL PO STA (19:19)
[2017-11-29] MEDS ORDERED: IBUPROFEN 600 MG STARTER PACK 4 TAB BTL PO STA (19:19)
--- NOTE | 2017-11-29 19:19 | XR ---
EXAMINATION TYPE: XR foot complete RT DATE OF EXAM: 11/29/2017 COMPARISON: 11/02/2017 HISTORY: Foot pain TECHNIQUE: 3 views FINDINGS: There is soft tissue swelling of the forefoot. I see no fracture nor dislocation. Metatarsa ls are intact. There is mild spurring at the first MP joint. IMPRESSION: Mild soft tissue swelling. No fracture. No change.
[2017-11-29] MEDS ORDERED: predniSONE 50 MG TAB PO STA (19:20)
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
[2017-11-29 19:48] VITALS: BP 136/88; PULSE 98; TEMP 98.6
== END 2017-11-29 19:52 | disposition home or self-care (01) ==
LOC: EC 17:58
DX: M10.9 Gout, unspecified (principal); E78.5 Hyperlipidemia, unspecified; I10 Essential (primary) hypertension; I25.10 Atherosclerotic heart disease of native coronary artery without angina pectoris; M19.90 Unspecified osteoarthritis, unspecified site; F17.200 Nicotine dependence, unspecified, uncomplicated; Z79.82 Long term (current) use of aspirin; Z79.899 Other long term (current) drug therapy; Z88.0 Allergy status to penicillin; Z86.79 Personal history of other diseases of the circulatory system
CPT/HCPCS: 73630; 99284; J7512

== ENCOUNTER 2018-02-23 10:50 | Observation (INO) | payer OTHER ==
[2018-02-23 12:49] LABS: Partial Thromboplastin Time 22.3 sec (22.0-30.0); Prothrombin Time 10.2 sec (9.0-12.0)
[2018-02-23 12:51] LABS: ALT 49 U/L (21-72); AST 47 U/L (17-59); Albumin 4.3 g/dL (3.5-5.0); Alkaline Phosphatase 68 U/L (38-126); Anion Gap 7 mmol/L; Blood Urea Nitrogen 14 mg/dL (9-20); Calcium 9.3 mg/dL (8.4-10.2); Carbon Dioxide 25 mmol/L (22-30); Chloride 108 mmol/L (98-107); Glucose 99 mg/dL (74-99); Potassium 4.3 mmol/L (3.5-5.1); Sodium 140 mmol/L (137-145); Total Bilirubin 1.2 mg/dL (0.2-1.3); Total Protein 7.6 g/dL (6.3-8.2)
[2018-02-23 12:55] LABS: Appearance,Urine Clear (Clear); Bilirubin,Urine Negative (Negative); Blood,Urine Trace (Negative); Color,Urine Light Yellow; Glucose,Urine (UA) Negative (Negative); Ketones,Urine Negative (Negative); Leukocyte Esterase,Urine Negative (Negative); Mucus,Urine Rare /hpf; Nitrite,Urine Negative (Negative); PH, Urine 5.5 (5.0-8.0); Protein,Urine Negative (Negative); RBC,Urine 1 /hpf (0-5); Specific Gravity,Urine 1.007 (1.001-1.035); Urobilinogen,Urine <2.0 mg/dL (<2.0); WBC,Urine <1 /hpf (0-5)
[2018-02-23 12:56] LABS: Basophils % (A) 1 %; Eosinophils # (A) 0.2 k/uL (0-0.7); Eosinophils % (A) 3 %; HCT 53.2 % (39.0-53.0); HGB 17.5 gm/dL (13.0-17.5); Lymphocytes # (A) 1.9 k/uL (1.0-4.8); Lymphocytes % (A) 22 %; MCHC 32.9 g/dL (31.0-37.0); MCV 88.1 fL (80.0-100.0); Mean Platelet Volume 7.7; Monocytes # (A) 0.4 k/uL (0-1.0); Monocytes % (A) 5 %; Neutrophils # (A) 5.9 k/uL (1.3-7.7); Neutrophils % (A) 69 %; Platelet Count 194 k/uL (150-450); RBC 6.03 m/uL (4.30-5.90); RDW 13.9 % (11.5-15.5); WBC 8.6 k/uL (3.8-10.6)
[2018-02-23 13:05] LABS: Creatine Kinase 440 U/L (55-170)
[2018-02-23 13:18] LABS: Creatine Kinase MB 2.8 ng/mL (0.0-2.4); Troponin I <0.012 ng/mL (0.000-0.034)
[2018-02-23] MEDS ORDERED: SODIUM CHLORIDE 0.9% 1,000 ML IV STA (13:21)
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
--- NOTE | 2018-02-23 13:39 | XR ---
EXAMINATION TYPE: XR chest 2V DATE OF EXAM: 02/23/2018 COMPARISON: None HISTORY: 57-year-old male syncope TECHNIQUE: PA and lateral views FINDINGS: Heart normal size. Aorta within normal limits. Mild interstitial prominence has a chronic appearance. No consolidation or pleural effusion. IMPRESSION: No acute cardiopulmonary process.
--- NOTE | 2018-02-23 14:00 | CT ---
EXAMINATION TYPE: CT brain wo con DATE OF EXAM: 02/23/2018 COMPARISON: None HISTORY: 57-year-old male with pain, Multiple syncopal episodes TECHNIQUE: Examination was done in axial plane without intravenous contrast. Coronal and sagittal r econstructions performed. CT DLP: 1275 mGycm Automated exposure control for dose reduction was used. FINDINGS: There is no evidence of acute intracranial hemorrhage, acute ischemic changes, mass, mass-effect, or extra-axial fluid collection. There is no effacement of cerebral sulci or basal subarachnoid cister ns. There is no hydrocephalus. There is no midline shift. Bird-white matter distinction is preserv ed. Mild mucosal thickening right maxillary sinus with air-fluid level. Orbits and globes are intact. Mas toid air cells well pneumatized. IMPRESSION: No acute intracranial abnormality seen. Correlate for acute right maxillary sinusitis.
[2018-02-23] MEDS ORDERED: NALOXONE 0.4 MG/ML 1 ML VIAL IV PRN (14:59)
[2018-02-23] MEDS ORDERED: NITROGLYCERIN SL TABS 0.4 MG TAB SUBLINGUAL PRN (15:01)
[2018-02-23 17:38] LABS: Glucose,Whole Blood 150 mg/dL (75-99)
[2018-02-23 17:43] VITALS: BMI 38.5
[2018-02-23] MEDS: SODIUM CHLORIDE 0.9% 1,000 ML IV SCH (17:59)
[2018-02-23] MEDS: IBUPROFEN 800 MG TAB PO SCH ×2 (18:05→23:06)
[2018-02-23 20:19] LABS: Glucose,Whole Blood 106 mg/dL (75-99)
[2018-02-23] MEDS ORDERED: amLODIPine 5 MG TAB PO SCH (23:15)
[2018-02-24 00:23] VITALS: RESP 18
[2018-02-24 02:46] LABS: Glucose,Whole Blood 107 mg/dL (75-99)
[2018-02-24 06:06] LABS: Glucose,Whole Blood 126 mg/dL (75-99)
[2018-02-24 08:27] LABS: HCT 51.3 % (39.0-53.0); HGB 16.8 gm/dL (13.0-17.5); MCH 29.3 pg (25.0-35.0); MCHC 32.7 g/dL (31.0-37.0); MCV 89.5 fL (80.0-100.0); Mean Platelet Volume 7.5; Platelet Count 214 k/uL (150-450); RBC 5.73 m/uL (4.30-5.90); WBC 6.7 k/uL (3.8-10.6)
[2018-02-24 08:39] LABS: Calcium 8.9 mg/dL (8.4-10.2); Potassium 4.8 mmol/L (3.5-5.1)
[2018-02-24] MEDS ORDERED: ASPIRIN 81 MG PO SCH (09:00)
[2018-02-24] MEDS ORDERED: amLODIPine 5 MG TAB PO SCH (09:00)
[2018-02-24] MEDS ORDERED: ATENOLOL 25 MG TAB PO SCH (09:00)
[2018-02-24] MEDS ORDERED: ATORVASTATIN 10 MG TAB PO SCH (09:00)
[2018-02-24] MEDS: IBUPROFEN 800 MG TAB PO SCH ×2 (09:06→15:12)
--- NOTE | 2018-02-24 09:42 | ECHOF ---
Referral Reason:syncope MEASUREMENTS -------- HEIGHT: 182.9 cm WEIGHT: 127.5 kg BP: 151/105 RVIDd: 3.1 cm (< 3.3) IVSd: 1.3 cm (0.6 - 1.1) LVIDd: 4.8 cm (3.9 - 5.3) LVPWd: 1.3 cm (0.6 - 1.1) IVSs: 1.9 cm LVIDs: 2.8 cm LVPWs: 1.6 cm LA Diam: 3.8 cm (2.7 - 3.8) LAESV Index (A-L): 20.11 ml/m Ao Diam: 3.9 cm (2.0 - 3.7) AV Cusp: 2.4 cm (1.5 - 2.6) MV E Elmer: 0.82 m/s MV DecT: 212 ms MV A Elmer: 0.91 m/s MV E/A Ratio: 0.90 RAP: 5.00 mmHg RVSP: 31.23 mmHg FINDINGS -------- Sinus rhythm. This was a technically adequate study. The left ventricular size is normal. There is mild concentric left ventricular hypertrophy. Overa ll left ventricular systolic function is normal with, an EF between 55 - 60 %. The right ventricle is normal in size. Normal LA size by volume 22+/-6 ml/m2. The right atrium is normal in size. 3 ml of Lumason was utilized for enhancement of images. The aortic valve is trileaflet and appears structurally normal. The mitral valve is normal. Mild mitral annular calcification present. Mild tricuspid regurgitation present. Right ventricular systolic pressure is normal at < 35 mmHg. There is no pulmonic regurgitation present. The aortic root is dilated measuring 3.9cm. Normal inferior vena cava with normal inspiratory collapse consistent with estimated right atrial pre ssure of 5 mmHg. The inferior vena cava is mildly dilated. There is no pericardial effusion. CONCLUSIONS -------- 1. Sinus rhythm. 2. This was a technically adequate study. 3. The left ventricular size is normal. 4. There is mild concentric left ventricular hypertrophy. 5. Overall left ventricular systolic function is normal with, an EF between 55 - 60 %. 6. The right ventricle is normal in size. 7. Normal LA size by volume 22+/-6 ml/m2. 8. The right atrium is normal in size. 9. 3 ml of Lumason was utilized for enhancement of images. 10. The aortic valve is trileaflet and appears structurally normal. 11. The mitral valve is normal. 12. Mild mitral annular calcification present. 13. Mild tricuspid regurgitation present. 14. Right ventricular systolic pressure is normal at < 35 mmHg. 15. There is no pulmonic regurgitation present. 16. The aortic root is dilated measuring 3.9cm. 17. Normal inferior vena cava with normal inspiratory collapse consistent with estimated right atrial pressure of 5 mmHg. 18. The inferior vena cava is mildly dilated. 19. There is no pericardial effusion. TEAM ASSEMBLY LINE MACHINE OPERATOR: Leela Hawkins RDCS
[2018-02-24 11:36] LABS: Glucose,Whole Blood 111 mg/dL (75-99)
[2018-02-24 11:50] VITALS: PULSE 80
[2018-02-24] MEDS: SODIUM CHLORIDE 0.9% 1,000 ML IV SCH (15:12)
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
--- NOTE | 2018-02-24 15:31 | HP ---
HISTORY AND PHYSICAL DATE OF ADMISSION: 02/23/18. DATE OF SERVICE: 02/24/18. PRESENTING COMPLAINT: Syncope. HISTORY OF PRESENTING COMPLAINT: This is a pleasant 57-year-old patient of Dr. eG. Chronic stable medical conditions include hypertension. The patient is long-standing smoker. Also been diagnosed sleep apnea, does require a machine. The patient has been having syncope associated with cough. The last week it happened 3 times. The patient has continued to smoke. The patient also not be using his Symbicort. The patient has been worked up by Dr. Johnston in the past including an event monitor, but even monitor did not picking up anything. Patient also did have a cardiac cath and during 1 of the times patient had a cough it was followed by a pause. The patient states before patient would have some premonitory symptoms coming on, but now it can happen with a cough right away. This time the patient has had about 3 episodes in the last 1 week. The patient denies any chest pain, palpitations. REVIEW OF SYSTEMS: CONSTITUTIONAL: None. HEENT: None. RESPIRATORY: As above. CARDIOVASCULAR: None. GASTROINTESTINAL: None. GENITOURINARY: None. MUSCULOSKELETAL: None. DERMATOLOGIC, HEMATOLOGIC, LYMPHATICS: None. PSYCHIATRY: None. NEUROLOGICAL: None. PAST MEDICAL HISTORY: History of DVT, GERD, hyperlipidemia, hypertension, osteoarthritis, sleep apnea, blood clot in the left leg over 30 years ago. PAST SURGICAL HISTORY: Cardiac catheterization, otherwise negative. SOCIAL HISTORY: Smokes about half a pack a day close to 43 years. Deals in tractor parts. . Drinks a few beers a week. FAMILY HISTORY: Of lymphoma. HOME MEDICATIONS: 1. Nitrostat 0.4 sublingual q.5 p.r.n. 2. Norvasc 5 mg a day. 3. Ibuprofen 800 mg t.i.d. 4. Lipitor 10 mg p.o. daily. 5. Atenolol 25 mg p.o. daily. 6. Aspirin 81 mg p.o. daily. ALLERGY: To AMOXICILLIN. PHYSICAL EXAMINATION: Temperature 97, pulse 80, respiration 18, blood pressure 143/98, pulse 94 percent on room air. GENERAL APPEARANCE: Well built, BMI 38.2, sitting up, comfortable. EYES: Pupils equal. Conjunctivae normal. HEENT: External appearance of nose and ears normal. Oral cavity normal. NECK: JVD not raised. Mass not palpable. Respiratory effort normal. LUNGS: Diminished breath sounds, mild wheezing. CARDIOVASCULAR: First and second sounds normal. No edema. ABDOMEN: Soft, nontender. Liver and spleen not palpable. LYMPHATIC: No lymph node palpable. PSYCHIATRY: Alert and oriented x3. Mood and affect normal. NEUROLOGICAL: Pupils equal. Cranial nerves grossly intact. Power and sensation grossly intact. INVESTIGATIONS: White count 6, with a hemoglobin 16.8, potassium 4.8, BUN and creatinine are normal. Also reviewed in the context of assessment and plan. 2D echo shows EF of 50-60 percent. EKG shows normal sinus rhythm. CT scan of the brain unremarkable. ASSESSMENT: 1. Recurrent episodes of syncope, always precipitated by a cough. In fact when I spoke to Dr. Trae Johnston on one side the patient had a cough and followed by a pause and that is not indication for a pacemaker. The patient's chronic obstructive pulmonary disease needs to be better managed and controlled. The patient has not been taking his Symbicort Dr. Delmy Shields had informed me. 2. Obesity BMI at 38.2. 3. Obstructive sleep apnea. Will need to get a CPAP machine. 4. Essential hypertension. 5. Chronic nicotine dependence. Patient is a cigarette smoker. PLAN: Dr. Shields saw the patient and will be adding bronchodilators, burst of steroids, looking into CPAP. As discussed with Dr. Katya Johnston no further indication for any further testing. Cough needs to be controlled by the COPD. Smoking cessation counseling was done. The patient is told about the same. More than 3 minutes was spent on this aspect of the case. MMODL / IJN: [id number] /
[2018-02-24 15:55] VITALS: BP 136/96; TEMP 97.3
--- NOTE | 2018-02-24 16:16 | CONS ---
CONSULTATION This is a 57-year-old gentleman who is seen by me in the office on a regular basis. He has hypertension and noncritical CAD based on a cardiac catheterization that was performed in July of this year. He has a left dominant system, mild irregularities but no significant CAD is noted. He was seen by me because of history of what seemed to be nondescript chest tightness, pressure and also episode of syncope. Whenever he coughs, he has bradycardia and has had syncopal episodes which are very brief episodes. Unfortunately, he does have bronchial asthma, smokes and has seen and has been seen by Dr. Shields. He also had a sleep study and was advised a CPAP, but he has not followed through because of some insurance issues. He came into the hospital through the emergency room yesterday afternoon. His main issue was that whenever he coughs he is having spells and he tends to pass out but did not quite lose consciousness and with these symptoms going on for a couple of years, he came into the hospital. He did not have a ajit syncope, did not lose consciousness. These episodes have been also noticed by me and he had an episode after cardiac cath when he had a coughing bout with bradycardia. However, he was advised to quit smoking. This seems to be a precipitating factor, but he has not been able to do so. At the time of my evaluation, he is resting comfortably, has no symptoms at the time of my evaluation. PAST MEDICAL HISTORY: 1. Hypertension. 2. Smoking. 3. Known diagnosis of cough syncope. 4. No significant CAD based on cardiac cath. 5. Sleep apnea syndrome for which he has not started wearing CPAP yet because of insurance reasons. ALLERGIES: There is a questionable ALLERGY TO AMOXICILLIN. MEDICATIONS: Include aspirin 81 mg daily, amlodipine 5 mg daily, atenolol 25 mg daily, atorvastatin 10 mg daily, sublingual nitroglycerin that he has seldom required. 1. Cardiac cath in July of 2017 did not reveal significant CAD. He has a left dominant system, nondominant RCA. 2. Hypertension. 3. Hyperlipidemia. 4. Smoking and COPD. 5. Sleep apnea, does not wear CPAP. The patient has a left total knee arthroplasty in the past. EXAMINATION: Blood pressure is 130/80, pulse rate is 78 per minute regular. HEENT: Unremarkable. Fundus was not examined by me. Neck is supple. There is no JVD. I do not hear a carotid bruit. Heart exam reveals S1, S2 heard normally without a rub, murmur or gallop. Lungs are clear. Abdomen is soft, nontender. Lower extremities reveal normal pulses. No edema. Central nervous system is normal. EKG revealed a sinus mechanism, no acute changes. Laboratory data do not reveal any significant abnormalities. D-dimer is also normal. IMPRESSION: 1. Episode of cough, near syncope, which is not a new problem. 2. Bronchial asthma. 3. Noncritical coronary artery disease. 4. Hypertension. 5. Hyperlipidemia. 6. History of cardiac cath in July which did not reveal significant coronary artery disease. 7. Status post event monitor which was also unremarkable. RECOMMENDATIONS: I am recommending a pulmonary evaluation by Dr. Shields who has seen him before. I am recommending that he should have a re-evaluation regarding sleep study and may benefit from a CPAP mask. His episodes of cough seem to be precipitated by smoking and I do not believe they are significant enough that he will require the pacemaker at this time. I explained this to the patient. I am recommending a pulmonary evaluation, possibly some treatment of his bronchial asthma and his cough may also reflect some reactive airway disease as well and this should be addressed. He should also have a consideration for CPAP initiation since he already had a sleep study performed through Dr. Shields. I will seek input from Dr. Shields, continue telemetry, resume his medications and based on clinical course we will make further recommendations. Thank you very much for the consult. HITESH / TEETEEN: [id number] /
[2018-02-24] MEDS ORDERED: IPRATROPIUM-ALBUTEROL 3 ML NEB INHALATION SCH (20:00)
[2018-02-24] MEDS ORDERED: MONTELUKAST 10 MG TAB PO SCH (21:00)
--- NOTE | 2018-02-26 08:22 | DS ---
DISCHARGE SUMMARY DATE OF ADMISSION: 02/23/2018. DATE OF DISCHARGE: 02/24/2018. FINAL DIAGNOSES: 1. Cough. 2. Syncope. 3. Obesity, BMI 38.3. 4. Obstructive sleep apnea, needs CPAP machine. 5. Essential hypertension. 6. Chronic nicotine dependence in a patient who is a cigarette smoker. 7. Chronic obstructive pulmonary disease from underlying smoking. HOSPITAL COURSE: This patient has recurrent syncope, has been worked up by Dr. Katya Johnston. The patient did also have a cardiac cath that was negative. Holter monitor was negative. During cardiac cath session, following that, the patient did have a cough followed by a pause. The patient is supposed to use a CPAP. Patient is still smoking. I talked to Dr. Katya Johnston. Patient can be discharged. Also spoke to Dr. Shields. The patient can be discharged. He was given bronchodilators. The patient was counseled extensively about smoking cessation, as was present. PHYSICAL EXAMINATION: Temperature 97.3, pulse 80, blood pressure 132/96. Lung sounds decreased with some mild wheezing. DISCHARGE MEDICATIONS: 1. Aspirin 81 mg a day. 2. Norvasc 5 mg a day. 3. Atenolol 25 mg a day. 4. Lipitor 10 mg a day. 5. Nitrostat 0.4 sublingual every 5 p.r.n. 6. Ibuprofen 800 mg p.o. t.i.d. 7. DuoNeb q.i.d. 8. Singulair 10 mg p.o. daily. FOLLOWUP: 1. Follow up with Dr. Katya Johnston in 2 weeks. 2. Follow up with Dr. Ge on 02/28/2018. 3. Follow up with Dr. Shields on 02/27/2018. Patient was told not to drive until his cough has settled down, precipitating the syncope. MMODL / IJN: [id number] /
== END 2018-02-24 17:07 | disposition home or self-care (01) ==
LOC: EC 10:50 → INTOOBSV 14:59 → 6SEL 14:59 → UNDODISIN 02-24 17:07
PROVIDERS: ADMIT Hospitalist; ATTEND Hospitalist
DX: R55 Syncope and collapse (principal); M19.90 Unspecified osteoarthritis, unspecified site; D72.1 Eosinophilia; E66.9 Obesity, unspecified; E78.5 Hyperlipidemia, unspecified; F17.210 Nicotine dependence, cigarettes, uncomplicated; G47.33 Obstructive sleep apnea (adult) (pediatric); I10 Essential (primary) hypertension; I25.10 Atherosclerotic heart disease of native coronary artery without angina pectoris; K21.9 Gastro-esophageal reflux disease without esophagitis; J44.9 Chronic obstructive pulmonary disease, unspecified; J45.50 Severe persistent asthma, uncomplicated; Z68.38 Body mass index [BMI] 38.0-38.9, adult; Z79.82 Long term (current) use of aspirin; Z79.899 Other long term (current) drug therapy; Z86.718 Personal history of other venous thrombosis and embolism; Z86.73 Personal history of transient ischemic attack (TIA), and cerebral infarction without residual deficits; Z91.19 Patient's noncompliance with other medical treatment and regimen; Z88.0 Allergy status to penicillin; Z80.7 Family history of other malignant neoplasms of lymphoid, hematopoietic and related tissues
CPT/HCPCS: 96360; 96361; 99291; 36415; 93005; 93306; 85379; 80053; 80048; 82550; 82553; 84484; 85025; 85027; 85610; 85730; 81001; 71046; 70450; G0378 ×2; Q9950

== ENCOUNTER 2018-06-23 15:03 | Emergency (ER) | payer OTHER ==
[2018-06-23] MEDS ORDERED: SODIUM CHLORIDE 0.9% 1,000 ML IV STA (15:26)
[2018-06-23 16:01] LABS: Basophils % (A) 0 %; Eosinophils % (A) 1 %; HCT 50.1 % (39.0-53.0); HGB 16.6 gm/dL (13.0-17.5); Lymphocytes # (A) 1.6 k/uL (1.0-4.8); Lymphocytes % (A) 19 %; MCH 29.2 pg (25.0-35.0); MCHC 33.2 g/dL (31.0-37.0); MCV 88.2 fL (80.0-100.0); Mean Platelet Volume 7.2; Monocytes # (A) 0.4 k/uL (0-1.0); Monocytes % (A) 4 %; Neutrophils # (A) 6.3 k/uL (1.3-7.7); Neutrophils % (A) 75 %; Platelet Count 214 k/uL (150-450); RBC 5.68 m/uL (4.30-5.90); WBC 8.3 k/uL (3.8-10.6)
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
[2018-06-23 16:14] LABS: D-Dimer 0.32 mg/L FEU (<0.60); INR 0.9 (<1.2); Partial Thromboplastin Time 24.4 sec (22.0-30.0); Prothrombin Time 10.2 sec (9.0-12.0)
[2018-06-23 16:21] LABS: ALT 36 U/L (21-72); AST 29 U/L (17-59); Alkaline Phosphatase 59 U/L (38-126); Anion Gap 8 mmol/L; Blood Urea Nitrogen 21 mg/dL (9-20); Calcium 9.1 mg/dL (8.4-10.2); Carbon Dioxide 24 mmol/L (22-30); Chloride 111 mmol/L (98-107); Glucose 147 mg/dL (74-99); Magnesium 1.9 mg/dL (1.6-2.3); Potassium 4.4 mmol/L (3.5-5.1); Sodium 143 mmol/L (137-145); Total Bilirubin 0.6 mg/dL (0.2-1.3); Total Protein 6.9 g/dL (6.3-8.2)
[2018-06-23 16:33] LABS: Troponin I 0.015 ng/mL (0.000-0.034)
--- NOTE | 2018-06-23 17:14 | CT ---
EXAMINATION TYPE: CT brain wo con DATE OF EXAM: 06/23/2018 COMPARISON: 02/23/2018 HISTORY: Syncopal episode today CT DLP: 1111.4 mGycm Automated exposure control for dose reduction was used. FINDINGS: Ventricles and sulci appear normal. There is no mass effect nor midline shift. There is no sign of in tracranial hemorrhage. The calvarium is intact. IMPRESSION: NEGATIVE CT SCAN OF THE BRAIN. NO CHANGE.
[2018-06-23 17:38] LABS: Appearance,Urine Clear (Clear); Bacteria,Urine Rare /hpf; Bilirubin,Urine Negative (Negative); Blood,Urine Trace (Negative); Color,Urine Yellow; Glucose,Urine (UA) Negative (Negative); Hyaline Casts,Urine 1 /lpf (0-2); Ketones,Urine Negative (Negative); Leukocyte Esterase,Urine Negative (Negative); Mucus,Urine Rare /hpf; Nitrite,Urine Negative (Negative); Protein,Urine Negative (Negative); RBC,Urine 6 /hpf (0-5); Specific Gravity,Urine 1.021 (1.001-1.035); Urobilinogen,Urine <2.0 mg/dL (<2.0)
[2018-06-23 18:22] VITALS: BP 133/89; PULSE 91; RESP 18; TEMP 98.9
== END 2018-06-23 18:21 | disposition home or self-care (01) ==
LOC: EC 15:03
DX: R55 Syncope and collapse (principal); R51 Headache; E78.5 Hyperlipidemia, unspecified; I10 Essential (primary) hypertension; I25.119 Atherosclerotic heart disease of native coronary artery with unspecified angina pectoris; M19.90 Unspecified osteoarthritis, unspecified site; F17.200 Nicotine dependence, unspecified, uncomplicated; Z88.0 Allergy status to penicillin; Z79.1 Long term (current) use of non-steroidal anti-inflammatories (NSAID); Z79.82 Long term (current) use of aspirin; Z79.899 Other long term (current) drug therapy; Z96.652 Presence of left artificial knee joint; Z95.818 Presence of other cardiac implants and grafts; Z86.73 Personal history of transient ischemic attack (TIA), and cerebral infarction without residual deficits
CPT/HCPCS: 36415; 70450; 80053; 81001; 82550; 82553; 83735; 84484; 85025; 85379; 85610; 85730; 93005; 96360; 99285

== ENCOUNTER → 2018-07-04 | Outpatient (CLI) | payer OTHER ==
--- NOTE | 2018-07-04 13:14 | US ---
EXAMINATION TYPE: US carotid duplex BILAT DATE OF EXAM: 07/04/2018 COMPARISON: CT, MRA CLINICAL HISTORY: R55 Syncope and collapse. Multiple syncopal episodes per patient; TIA years ago per patient. EXAM MEASUREMENTS: RIGHT: Peak Systolic Velocity (PSV) cm/sec ----- Right CCA: 75.3 ----- Right ICA: 77.8 ----- Right ECA: 94.2 ICA/CCA ratio: 1.0 RIGHT: End Diastole cm/sec ----- Right CCA: 22.2 ----- Right ICA: 38.1 ----- Right ECA: 15.9 LEFT: Peak Systolic Velocity (PSV) cm/sec ----- Left CCA: 66.7 ----- Left ICA: 88.8 ----- Left ECA: 75.6 ICA/CCA ratio: 1.3 LEFT: End Diastole cm/sec ----- Left CCA: 21.6 ----- Left ICA: 35.9 ----- Left ECA: 20.5 VERTEBRALS (direction of flow): Right Vertebral: Antegrade Left Vertebral: Antegrade Rhythm: Normal Mild intimal wall thickening is noted in bilateral CCA and ICA, but PSV is wnl bilaterally. IMPRESSION: Mild degree of grayscale atheromatous plaquing with no sonographically evident hemodynam ically significant stenosis within either visualized carotid arterial system. Criteria for Assigning % of Stenosis / Diameter reduction (Estimation based on the indirect measurements of the internal carotid artery velocities (ICA PSV). 1. Normal (no stenosis)=ICA PSV < 125 cm/s: ratio < 2.0: ICA EDV<40 cm/s. 2. Less than 50% stenosis=ICA PSV < 125 cm/s: ratio < 2.0: ICA EDV<40 cm/s. 3. 50 to 69% stenosis=ICA PSV of 125 to 230 cm/s: ration 2.0 ? 4.0: ICA EDV 40-100 cm/s. 4. Greater than 70% stenosis to near occlusion= ICA PSV > 230 cm/s: ratio > 4.0: ICA EDV > 100 cm/s. 5. Near occlusion= ICA PSV velocities may be low or undetectable: variable ratio and ICA EDV. 6. Total occlusion=unable to detect flow.
--- NOTE | 2018-07-12 10:44 | HM ---
HOLTER MONITOR REPORT Hiram Taylor is referred for a Holter monitor by Dr. Ge and Holter monitor shows sinus mechanism, heart ranging from 66-116 beats per minute on average, 92 beats per minute. Frequent PVCs, PVC burden is about 3%, occasionally in a trigeminal pattern. No sustained or nonsustained ventricular arrhythmias. No significant bradycardia. MMODL / IJN: [id number] /
== END | disposition home or self-care (01) ==
LOC: RADECHMAIN 11:50
PROVIDERS: ATTEND Family Medicine
DX: I65.23 Occlusion and stenosis of bilateral carotid arteries (principal); R55 Syncope and collapse
CPT/HCPCS: 93225; 93226; 93880

== ENCOUNTER → 2018-07-11 | Outpatient (CLI) | payer OTHER ==
--- NOTE | 2018-07-11 15:26 | ECHOF ---
Referral Reason:R55 Syncope and collapse MEASUREMENTS -------- HEIGHT: 182.9 cm WEIGHT: 127.0 kg BP: IVSd: 1.3 cm (0.6 - 1.1) LVIDd: 3.9 cm (3.9 - 5.3) LVPWd: 1.3 cm (0.6 - 1.1) IVSs: 1.5 cm LVIDs: 2.7 cm LVPWs: 1.5 cm RVIDd: 3.2 cm (< 3.3) LAESV Index (A-L): 14.47 ml/m Ao Diam: 3.6 cm (2.0 - 3.7) LA Diam: 3.5 cm (2.7 - 3.8) AV Cusp: 2.2 cm (1.5 - 2.6) EPSS: 0.7 cm MV E Elmer: 0.58 m/s MV DecT: 288 ms MV A Elmer: 0.92 m/s MV E/A Ratio: 0.63 RAP: 5.00 mmHg RVSP: 18.03 mmHg MV EF SLOPE: 60.15 mm/s (70 - 150) MV EXCURSION: 1.65 cm (> 18.000) FINDINGS -------- Sinus rhythm. This was a technically adequate study. The left ventricular size is normal. There is mild concentric left ventricular hypertrophy. Overa ll left ventricular systolic function is mildly impaired with, an EF between 45 - 50 %. Elizabeth Hypoki nesis. The right ventricle is normal in size and function. Normal LA size by volume 22+/-6 ml/m2. The right atrium is normal in size. Aortic valve is trileaflet and is mildly thickened. There is no evidence of aortic regurgitation. There is no evidence of aortic stenosis. Mild mitral annular calcification present. Mild mitral regurgitation is present. Trace tricuspid regurgitation present. Right ventricular systolic pressure is normal at < 35 mmHg. There is no evidence of pulmonary hypertension. Trace/mild (physiologic) pulmonic regurgitation. The ascending aorta is dilated measuring up to 3.8cm. Normal inferior vena cava with normal inspiratory collapse consistent with estimated right atrial pre ssure of 5 mmHg. There is no pericardial effusion. CONCLUSIONS -------- 1. Sinus rhythm. 2. This was a technically adequate study. 3. The left ventricular size is normal. 4. There is mild concentric left ventricular hypertrophy. 5. Elizabeth Hypokinesis. 6. Normal LA size by volume 22+/-6 ml/m2. 7. Aortic valve is trileaflet and is mildly thickened. 8. Mild mitral annular calcification present. 9. Mild mitral regurgitation is present. 10. Trace tricuspid regurgitation present. 11. Right ventricular systolic pressure is normal at < 35 mmHg. 12. There is no evidence of pulmonary hypertension. 13. Trace/mild (physiologic) pulmonic regurgitation. 14. The ascending aorta is dilated measuring up to 3.8cm. 15. There is no pericardial effusion. SENIOR ASSISTANT MANAGER: Sundeep Camacho RDCS
== END | disposition home or self-care (01) ==
LOC: RADECHMAIN 11:43
PROVIDERS: ATTEND Family Medicine
DX: I34.0 Nonrheumatic mitral (valve) insufficiency (principal); I35.8 Other nonrheumatic aortic valve disorders; I37.1 Nonrheumatic pulmonary valve insufficiency; I51.89 Other ill-defined heart diseases; I77.819 Aortic ectasia, unspecified site; I51.7 Cardiomegaly; R55 Syncope and collapse
CPT/HCPCS: 93306

== ENCOUNTER → 2018-07-13 | Outpatient (CLI) | payer OTHER | END | disposition home or self-care (01) | LOC: RADUSWWP 06:51 | PROVIDERS: ATTEND Family Medicine | DX: R09.89 Other specified symptoms and signs involving the circulatory and respiratory systems (principal) | CPT/HCPCS: 93923 ==

== ENCOUNTER → 2018-08-09 | Outpatient (CLI) | payer OTHER ==
--- NOTE | 2018-08-09 11:09 | CT ---
EXAMINATION TYPE: CT angio chest DATE OF EXAM: 08/09/2018 COMPARISON: Low-dose chest CT dated 11/23/2017 HISTORY: Thoracic aortic aneurysm CT DLP: 976 mGycm. Automated Exposure Control for Dose Reduction was Utilized. CONTRAST: CTA scan of the thorax is performed without and with IV Contrast, patient injected with 100 ml mL of Isovue 370, pulmonary embolism protocol. MIP Images are created on CT scanner and reviewed. FINDINGS: LUNGS: Bilateral benign granulomas are present. There are noncalcified pulmonary nodules along the pe riphery of the left lower lobe on series 9 image 46 measuring 3 and 4 mm and in the right lower lobe measuring 4 and 3 mm on image 38. No significant interval growth in comparison to the prior. No new f ocal consolidation. There is no pleural effusion or pneumothorax seen. The tracheobronchial tree i s patent. MEDIASTINUM: The unenhanced images demonstrate no evidence of intramural hematoma. Enhanced images de monstrate a conventional three-vessel branch pattern of the aortic arch. No evidence of dissection is seen. The ascending thoracic aorta again measures up to 3.9 cm, upper limits of normal. The aortic r oot measures 4.0 cm, also upper limits of normal. Descending thoracic aorta measures 2.5 cm, within n ormal limits. There is satisfactory enhancement of the pulmonary artery and its branches, there is no CT evidence for pulmonary embolism. There are no greater than 1 cm hilar or mediastinal lymph nodes . No cardiomegaly or pericardial effusion is seen. OTHER: Benign granulomas are seen within the splenic parenchyma. Low-attenuation of the hepatic paren chyma represents hepatic steatosis. Small fat containing left renal angiomyolipoma is seen on series 8 image 69 medially. Moderate hiatal hernia is noted. Mild degenerative changes of the spine are pres ent. Small sclerotic focus within the posterior lateral aspect of rib 9 on the right is redemonstrate d. IMPRESSION: 1. Stable upper limits normal size of the aortic root and ascending thoracic aorta. No dissection or intramural hematoma. 2. Bilateral pulmonary nodules in addition to benign granulomatous change are again noted. As recomme nded on the prior low-dose lung chest CT annual surveillance is recommended.
== END ==
LOC: RADCTMAIN 09:23
PROVIDERS: ATTEND Family Medicine
DX: R91.8 Other nonspecific abnormal finding of lung field (principal)
CPT/HCPCS: 71275; Q9967

== ENCOUNTER 2018-09-02 16:39 | Observation (INO) | payer OTHER ==
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
[2018-09-02 17:12] LABS: Basophils % (A) 0 %; Eosinophils # (A) 0.1 k/uL (0-0.7); Eosinophils % (A) 1 %; HCT 49.5 % (39.0-53.0); HGB 16.4 gm/dL (13.0-17.5); Lymphocytes # (A) 1.9 k/uL (1.0-4.8); Lymphocytes % (A) 23 %; MCH 29.7 pg (25.0-35.0); MCHC 33.2 g/dL (31.0-37.0); MCV 89.4 fL (80.0-100.0); Monocytes # (A) 0.4 k/uL (0-1.0); Monocytes % (A) 5 %; Neutrophils # (A) 5.8 k/uL (1.3-7.7); Neutrophils % (A) 70 %; Platelet Count 200 k/uL (150-450); RBC 5.53 m/uL (4.30-5.90); RDW 13.8 % (11.5-15.5); WBC 8.4 k/uL (3.8-10.6)
--- NOTE | 2018-09-02 17:19 | XR ---
EXAMINATION TYPE: XR chest 2V DATE OF EXAM: 09/02/2018 COMPARISON: 02/23/2018 HISTORY: Chest pain TECHNIQUE: Frontal and lateral views of the chest are obtained. FINDINGS: Heart and mediastinum are normal. Lungs are clear. Diaphragm is normal. There are chest le ads. Bony thorax is intact. IMPRESSION: Normal chest. No change.
[2018-09-02 17:22] LABS: Albumin 3.8 g/dL (3.5-5.0); Calcium 8.7 mg/dL (8.4-10.2); Potassium 4.2 mmol/L (3.5-5.1); Total Bilirubin 0.7 mg/dL (0.2-1.3); Total Protein 6.7 g/dL (6.3-8.2)
[2018-09-02 17:29] LABS: D-Dimer 0.37 mg/L FEU (<0.60); INR 0.9 (<1.2); Partial Thromboplastin Time 25.8 sec (22.0-30.0); Prothrombin Time 10.2 sec (9.0-12.0)
[2018-09-02] MEDS ORDERED: IPRATROPIUM-ALBUTEROL 3 ML NEB INHALATION STA (18:27)
[2018-09-02] MEDS ORDERED: MORPHINE SULFATE 4 MG/ML SYRINGE IV PRN (19:32)
[2018-09-02] MEDS ORDERED: NALOXONE 0.4 MG/ML 1 ML VIAL IV PRN (19:32)
[2018-09-02 21:19] VITALS: BMI 34.4
[2018-09-02 21:28] LABS: Glucose,Whole Blood 153 mg/dL (75-99)
[2018-09-03 08:10] VITALS: RESP 18
--- NOTE | 2018-09-03 08:48 | CONS ---
CONSULTATION Hiram Taylor is a 58-year-old gentleman who I see in the office on a regular basis. This gentleman has history of smoking, COPD, bronchial asthma and has cough syncope. He has had cough syncope as an issue and later on after much persuasion, he went on to have a sleep study and apparently wears a CPAP at home on a more regular basis. Since he is wearing the CPAP and has quit smoking nearly 2-1/2 months ago, he has not had any syncope or near syncope type symptoms. Prior to that he has had some episodes of lightheadedness when he coughed. Because of some abnormality on the stress tests and I performed a cardiac cath on him in 2015 and July 2017. Both these studies revealed that he has no obstructive CAD. The latest cardiac cath was on August 17, 2017. His filling pressures were normal and he has a left dominant system with mild irregularities involving the obtuse marginal without significant disease. He was recently hospitalized with an episode of chest pain and went on to have a CT angiography. This was in July of this year. There was a question of 3.9 cm ascending aortic diameter and he was seen by cardiac surgeon Dr. Chavez, who recommended no intervention. Fortunately, the patient has quit smoking. He takes a statin and a beta nahid. Blood pressure control is fair. He is here today mainly because of an episode of chest pain that occurred when he was watching basketball. The pain was in the epigastric area and somewhat to the right side of the chest and he had a sharp discomfort and achy feeling and then he came into the hospital. Pain has resolved completely. Three sets of troponins are normal. EKG is unremarkable. He is resting comfortably without symptoms. PAST MEDICAL HISTORY: 1. Remarkable for hospitalization with cough syncope. 2. History of sleep apnea, wears a CPAP. 3. Mild hyperlipidemia. 4. Hypertension. 5. History of smoking and COPD and he has quit smoking finally. 6. No evidence of any obstructive CAD by catheterization in July 2017. MEDICATIONS: At home include Lipitor 10 mg daily, Singulair 10 mg daily, atenolol 25 mg daily. EKG revealed a sinus mechanism without acute changes. PHYSICAL EXAMINATION: Blood pressure is 130/78, pulse rate is 70 per minute regular. HEENT: Unremarkable. Fundus was not examined by me. Neck is supple. No JVD. I do not hear a carotid bruit. Heart exam reveals S1, S2 heard normally without any significant rub, murmur or gallop. Lungs reveal scattered rhonchi. Abdomen is soft, nontender. Lower extremities reveal normal pulses. No edema. Central nervous system is grossly within normal limits. EKG does not reveal any significant abnormalities. IMPRESSION: 1. Atypical chest pain. 2. History of smoking and chronic obstructive pulmonary disease and finally quit smoking. 3. History of cough syncope. 4. Unremarkable cardiac cath without obstructive coronary artery disease in July 2017. RECOMMENDATION: I am recommending that we increase activity, ambulate him as tolerated. If he has no further symptoms, he can be discharged. I will increase the Lipitor to 20 mg daily. Continue atenolol 25 mg daily and also Singulair 10 mg daily. Advised to follow up with his chief environmental commitment officer Dr. Delmy Shields. I discussed my thoughts in detail with the patient. Thank you very much for the consult. MMBRETL / TEETEEN: [id number] /
[2018-09-03] MEDS ORDERED: MONTELUKAST 10 MG TAB PO SCH (09:00)
[2018-09-03] MEDS ORDERED: ATORVASTATIN 20 MG TAB PO SCH (09:00)
[2018-09-03] MEDS ORDERED: ATENOLOL 25 MG TAB PO SCH (09:00)
[2018-09-03 12:05] VITALS: BP 126/88; PULSE 67; TEMP 97.7
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
--- NOTE | 2018-09-03 23:25 | P.DS ---
Providers Date of admission: 09/02/18 19:32 Expected date of discharge: 09/03/18 Attending physician: Leonides Rodriguez Consults: 09/02/18 19:33 Consult Physician Routine Consulting Provider: Yg Harden Consult Reason/Comments: Chest pain Do you want consulting provider notified?: Yes Primary care physician: [facility] Course: Discharge diagnosis Atypical chest pain. Ruled out acute coronary syndrome. History of cardiac catheterization with normal coronaries 2 most recent in 2018 Obstructive sleep apnea. Currently not on CPAP at home. COPD with previous history of smoking GERD Hyperlipidemia Hypertension Osteoarthritis History of TIA with 2000 DVT prophylaxis with heparin subcu Hospital course Patient is a 58-year-old male with a known history of hypertension, hyperlipidemia, osteoarthritis and obstructive sleep apnea on CPAP machine at home, nonobstructive coronary arteries with cardiac catheterization 2 most recent in 2017 and other multiple medical problems syncopal episodes with coughing prior to start using CPAP. Patient came to ER with complaints of chest pain started about 3:15 PMtoday. Pain is mainly in the mid retrosternal. Without any radiation. He did have some nausea. No abscess or vomiting. No diaphoresis. Patient did have shortness of breath. No complaints of fever or chills. No cough or sputum production. Patient says that he has episodes of blackout for the past 2 years. Currently has an appointment with neurology next week. Chest x-ray showed no acute cardio pulmonary process EKG showed normal sinus rhythm D-dimer is not elevated. Troponin 3 negative Patient was continued on telemetry monitoring. Serial EKGs and troponins negative. D-dimer not elevated. Chest x-ray is negative. Cardiology recommends no further workup at this time. Patient and recommended on breathing treatments and patient was followed with pulmonary and neurology as an outpatient. Currently patient denied any complaints of chest pain. Patient is stable to be discharged home. Discharge physical examination was done. Discharge vitals reviewed Patient Condition at Discharge: Good Plan - Discharge Summary Discharge Rx Participant: Yes New Discharge Prescriptions: New Atorvastatin [Lipitor] 20 mg PO DAILY #30 tab Continue Atenolol 25 mg PO DAILY Montelukast [Singulair] 10 mg PO DAILY Discontinued Atorvastatin [Lipitor] 10 mg PO DAILY Discharge Medication List Atenolol 25 mg PO DAILY 12/03/16 [History] Montelukast [Singulair] 10 mg PO DAILY 06/23/18 [History] Atorvastatin [Lipitor] 20 mg PO DAILY #30 tab 09/03/18 [Rx] Follow up Appointment(s)/Referral(s): Babak Johnston MD [STAFF PHYSICIAN] - 2 Weeks (please call [facility] and set up an appointment to see Dr. Johnston.) Vikram Ge MD [Primary Care Provider] - 1-2 days Christine Chacko MD [STAFF PHYSICIAN] - 1 Week Patient Instructions/Handouts: Chest Pain (ED) Discharge Disposition: HOME SELF-CARE
== END 2018-09-03 12:28 | disposition home or self-care (01) ==
LOC: EC 16:39 → 1SOBS 19:32
PROVIDERS: ADMIT Internal Medicine; ATTEND Internal Medicine
DX: R07.2 Precordial pain (principal); R10.13 Epigastric pain; R11.0 Nausea; R06.02 Shortness of breath; R55 Syncope and collapse; R05 Cough; R42 Dizziness and giddiness; K21.9 Gastro-esophageal reflux disease without esophagitis; I10 Essential (primary) hypertension; E78.5 Hyperlipidemia, unspecified; M19.90 Unspecified osteoarthritis, unspecified site; J44.9 Chronic obstructive pulmonary disease, unspecified; G47.33 Obstructive sleep apnea (adult) (pediatric); E66.9 Obesity, unspecified; Z68.34 Body mass index [BMI] 34.0-34.9, adult; Z86.718 Personal history of other venous thrombosis and embolism; Z87.891 Personal history of nicotine dependence; Z79.899 Other long term (current) drug therapy; Z88.0 Allergy status to penicillin; I25.10 Atherosclerotic heart disease of native coronary artery without angina pectoris; Z86.73 Personal history of transient ischemic attack (TIA), and cerebral infarction without residual deficits; Z80.7 Family history of other malignant neoplasms of lymphoid, hematopoietic and related tissues
CPT/HCPCS: 99285; 36415; 94640; 93005; 85379; 80053; 83735; 84484 ×2; 85025; 85610; 85730; 71046; G0378 ×2

== ENCOUNTER → 2019-01-03 | Outpatient (CLI) | payer OTHER ==
[2019-01-03 10:29] LABS: HCT 49.1 % (39.0-53.0); HGB 16.3 gm/dL (13.0-17.5); MCH 28.8 pg (25.0-35.0); MCHC 33.1 g/dL (31.0-37.0); MCV 87.1 fL (80.0-100.0); Mean Platelet Volume 7.6; Platelet Count 197 k/uL (150-450); RBC 5.64 m/uL (4.30-5.90); RDW 15.4 % (11.5-15.5); WBC 7.5 k/uL (3.8-10.6)
[2019-01-03 10:58] LABS: Potassium 4.5 mmol/L (3.5-5.1)
== END | disposition home or self-care (01) ==
LOC: LABPAT 09:46
PROVIDERS: ATTEND Internal Medicine Interventional Cardiology
DX: Z01.812 Encounter for preprocedural laboratory examination (principal); I25.10 Atherosclerotic heart disease of native coronary artery without angina pectoris; E78.00 Pure hypercholesterolemia, unspecified
CPT/HCPCS: 36415; 80051; 82565; 82947; 84520; 85027

== ENCOUNTER → 2019-01-08 | Day surgery (SDC) | payer OTHER ==
[2019-01-04 08:56] VITALS: BMI 35.5
[~2019-01-08] MED LIST changes: -ALPRAZolam 0.25 MG TAB PO PRN; -ALPRAZolam 0.5 MG TAB PO PRN; -ASPIRIN 325 MG TAB PO STA; -ATORVASTATIN 80 MG TAB PO STA; +CLINDAMYCIN 900 MG in DEXTROSE 5% IN WATER 50 ML IVPB ONE; -HEPARIN SODIUM 1,000 UN/ML (10ML VL) ONE; -IOHEXOL 350 MG/ML (PER ML) 100ML BTL INJ ONE; +IV FLUID CONTINUATION 1,000 ML IV ONE; +LIDOCAINE 1% INJ 10MG/ML (20 ML MDV) ONE; +LIDOCAINE 1% INJ 10MG/ML (20 ML MDV) SQ ONE; -LIDOCAINE 2% INJ 20 MG/ML (20 ML MDV) ONE; -LIDOCAINE 2% INJ 20 MG/ML SQ ONE; +MIDAZOLAM (PF) 2 MG/2 ML VIAL IV ONE; -MIDAZOLAM 2 MG/2 ML VIAL IVP ONE; -MIDAZOLAM 2 MG/2 ML VIAL ONE; -NITROGLYCERIN SL TABS 0.4 MG TAB SUBLINGUAL PRN; -RX INFO: IV CONTRAST WAS GIVEN 1 EACH MISC MISCELLANE PRN; -SODIUM CHLORIDE 0.9% 1,000 ML in EMPTY BAG 1 BAG IV ONE; -VERAPAMIL 2.5 MG/ML 2 ML AMP ONE; -VERAPAMIL SYRINGE (5 MG/10 ML) INTRAARTER ONE; -diphenhydrAMINE 50 MG/ML 1 ML VIAL IVP ONE; -diphenhydrAMINE 50 MG/ML 1 ML VIAL ONE
[2019-01-08 10:57] VITALS: RESP 18; TEMP 97.7
[2019-01-08 11:58] VITALS: BP 137/91; PULSE 81
--- NOTE | 2019-01-08 11:58 | CE ---
CARDIAC ELECTROPHYSIOLOGY REPORT DATE OF SERVICE: 01/08/2019 PROCEDURE: Loop recorder insertion. PERFORMED BY: Dr. Katya Johnston. Moderate conscious sedation time was 10 minutes. CLINICAL INFORMATION: Mr. Hiram Taylor is a 58-year-old gentleman with a mild noncritical CAD, who has been having episodes of loss of consciousness following coughing bouts. He had a full EP evaluation performed at [facility] for also what seemed to be a short run of very fast nonsustained VT. He was noninducible and the intervals were normal but he continues to have episodes of syncope/near-syncope with coughing bouts. After due discussion with machine brusher at [facility], I recommended a loop recorder. He was brought in for the procedure electively. PROCEDURE NOTE: Under local anesthesia and strict aseptic precautions after administration of the antibiotic using the tool provided, a small stab incision was made in the left fourth intercostal space. Using the provided device, the loop recorder was inserted. A single suture of 0 silk was applied. Excellent hemostasis was achieved. There was a good signal with a with 0.45 mV. The patient will be monitored closely on a syncope protocol. DEVICE INFORMATION: [employer], device is [id number], Reveal LINQ, serial number [id number]. The patient will be monitored on syncope protocol and will be seen in the office in one week. MMODL / IJN: [id number] /
== END ==
LOC: CATHEP 10:17
PROVIDERS: ATTEND Internal Medicine Interventional Cardiology
DX: R55 Syncope and collapse (principal); R05 Cough; I25.10 Atherosclerotic heart disease of native coronary artery without angina pectoris; I10 Essential (primary) hypertension; E78.00 Pure hypercholesterolemia, unspecified; G47.33 Obstructive sleep apnea (adult) (pediatric); Z99.89 Dependence on other enabling machines and devices; Z87.891 Personal history of nicotine dependence; E66.9 Obesity, unspecified; Z68.35 Body mass index [BMI] 35.0-35.9, adult; Z79.82 Long term (current) use of aspirin; Z79.899 Other long term (current) drug therapy; Z88.0 Allergy status to penicillin
CPT/HCPCS: 33285; C1764; J2001; J2250

== ENCOUNTER 2019-01-31 22:16 | Emergency (ER) | payer OTHER ==
[2019-01-31 22:30] VITALS: RESP 16
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
[2019-01-31 23:38] LABS: Anisocytosis Slight; Basophils # (A) 0.1 k/uL (0-0.2); Basophils % (A) 1 %; Eosinophils # (A) 0.4 k/uL (0-0.7); Eosinophils % (A) 5 %; HCT 49.2 % (39.0-53.0); HGB 17.1 gm/dL (13.0-17.5); Lymphocytes % (A) 28 %; MCH 30.6 pg (25.0-35.0); MCHC 34.7 g/dL (31.0-37.0); Mean Platelet Volume 8.5; Monocytes # (A) 0.4 k/uL (0-1.0); Monocytes % (A) 6 %; Neutrophils # (A) 4.3 k/uL (1.3-7.7); Neutrophils % (A) 59 %; Platelet Count 180 k/uL (150-450); RBC 5.59 m/uL (4.30-5.90); RDW 16.6 % (11.5-15.5); WBC 7.2 k/uL (3.8-10.6)
[2019-01-31 23:48] LABS: Appearance,Urine Clear (Clear); Bilirubin,Urine Negative (Negative); Blood,Urine Trace (Negative); Color,Urine Yellow; Glucose,Urine (UA) Negative (Negative); Hyaline Casts,Urine 7 /lpf (0-2); Ketones,Urine Negative (Negative); Leukocyte Esterase,Urine Negative (Negative); Mucus,Urine Rare /hpf; Nitrite,Urine Negative (Negative); Protein,Urine Negative (Negative); RBC,Urine 1 /hpf (0-5); Urobilinogen,Urine <2.0 mg/dL (<2.0); WBC,Urine 1 /hpf (0-5)
[2019-01-31 23:49] LABS: African American GFR (CKD) >90 (>60 ml/min/1.73 sqM); Albumin 4.3 g/dL (3.5-5.0); Anion Gap 10 mmol/L; Carbon Dioxide 24 mmol/L (22-30); Chloride 105 mmol/L (98-107); Glucose 96 mg/dL (74-99); Sodium 139 mmol/L (137-145); Total Bilirubin 0.9 mg/dL (0.2-1.3); Total Protein 7.5 g/dL (6.3-8.2)
[2019-01-31 23:56] LABS: AST 56 U/L (17-59); Blood Urea Nitrogen 18 mg/dL (9-20); Potassium 4.9 mmol/L (3.5-5.1)
[2019-01-31 23:57] LABS: ALT 50 U/L (21-72); Alkaline Phosphatase 57 U/L (38-126)
[2019-02-01 02:25] VITALS: BP 127/91; PULSE 90; TEMP 98.3
[2019-02-01] MEDS ORDERED: HYDROcodone/APAP 5-325MG 1 EACH TAB PO STA (02:39)
== END 2019-02-01 02:45 | disposition short-term general hospital (02) ==
LOC: EC 22:16
DX: R46.89 Other symptoms and signs involving appearance and behavior (principal); R06.00 Dyspnea, unspecified; R09.89 Other specified symptoms and signs involving the circulatory and respiratory systems; Z87.891 Personal history of nicotine dependence; Z88.0 Allergy status to penicillin; Z86.69 Personal history of other diseases of the nervous system and sense organs
CPT/HCPCS: 36415; 80053; 81001; 85025; 93005; 99285

== ENCOUNTER → 2019-08-06 | Outpatient (CLI) | payer OTHER ==
--- NOTE | 2019-08-06 10:00 | CT ---
EXAMINATION TYPE: CT angio chest DATE OF EXAM: 08/06/2019 COMPARISON: None HISTORY: Thoracic Aortic Aneurysm without rupture CT DLP: 651.8 mGycm CONTRAST: CTA thoracic aorta with 3-D reconstruction is performed and with IV Contrast, patient injected with 1 00 mL of Isovue 370. Contrast CTA of the thoracic aorta was performed from the lung apex through the upper abdomen. 3D re construction imaging obtained at a separate workstation. CT Chest: THORACIC AORTA: No evidence for thoracic aortic aneurysm. Ascending thoracic aorta measures 3.9 cm. M ild atheromatous changes seen. There is no evidence for dissection or periaortic collection. LUNGS: The lungs are clear and free of infiltrate or atelectasis. Stable scattered calcified and nonc alcified pulmonary nodules are likely on the basis of the granulomatous disease. Splenic granulomas a re noted as well. Stability over a two-year timeframe should be documented radiographically. No pleur al effusion or CT evidence of interstitial lung disease. MEDIASTINUM: No evidence for mediastinal hematoma. The heart is not enlarged. No evidence for med iastinal mass or adenopathy. HILAR STRUCTURES: No evidence for mass. No hilar adenopathy is appreciated. OTHER: No significant abnormality. IMPRESSION- 1. No evidence for thoracic aortic aneurysm. 2. Stable calcified and noncalcified pulmonary nodules. Stability over a two-year timeframe should be documented radiographically.
== END | disposition home or self-care (01) ==
LOC: RADCTMAIN 08:08
PROVIDERS: ATTEND Surgery
DX: R91.8 Other nonspecific abnormal finding of lung field (principal); Z88.1 Allergy status to other antibiotic agents
CPT/HCPCS: 71275; Q9967

== ENCOUNTER 2021-06-26 15:04 | Emergency (ER) | payer OTHER, MEDICARE ==
[2021-06-26 15:42] VITALS: BP 141/90; PULSE 106; RESP 20; TEMP 99.1
[2021-06-26] MEDS ORDERED: MORPHINE SULFATE 4 MG/ML SYRINGE IM STA (16:26)
--- NOTE | 2021-06-26 17:07 | US ---
EXAMINATION TYPE: US venous doppler duplex LE RT DATE OF EXAM: 06/26/2021 4:48 PM COMPARISON: NONE CLINICAL HISTORY: pain. fall on Tuesday and hurt right foot and knee, swelling, no h/o dvt SIDE PERFORMED: Right TECHNIQUE: The lower extremity deep venous system is examined utilizing real time linear array sonog ayanna with graded compression, doppler sonography and color-flow sonography. VESSELS IMAGED: Common Femoral Vein Deep Femoral Vein Greater Saphenous Vein * Femoral Vein Popliteal Vein Small Saphenous Vein * Proximal Calf Veins (* superficial vessels) Right Leg: Negative for DVT IMPRESSION: No sign of deep vein thrombosis in the right leg.
[2021-06-26 18:17] LABS: Basophils # (A) 0.1 k/uL (0-0.2); Basophils % (A) 1 %; Eosinophils # (A) 0.2 k/uL (0-0.7); Eosinophils % (A) 2 %; HCT 48.5 % (39.0-53.0); HGB 16.5 gm/dL (13.0-17.5); Lymphocytes # (A) 1.8 k/uL (1.0-4.8); Lymphocytes % (A) 15 %; MCH 31.1 pg (25.0-35.0); MCV 91.4 fL (80.0-100.0); Mean Platelet Volume 8.9; Monocytes # (A) 0.6 k/uL (0-1.0); Monocytes % (A) 5 %; Neutrophils % (A) 76 %; Platelet Count 167 k/uL (150-450); RBC 5.31 m/uL (4.30-5.90); RDW 13.6 % (11.5-15.5); WBC 11.8 k/uL (3.8-10.6)
[2021-06-26 18:40] LABS: Albumin 4.1 g/dL (3.5-5.0); Calcium 9.1 mg/dL (8.4-10.2); Potassium 4.5 mmol/L (3.5-5.1); Total Bilirubin 1.3 mg/dL (0.2-1.3); Total Protein 7.1 g/dL (6.3-8.2)
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
== END 2021-06-26 19:10 | disposition home or self-care (01) ==
LOC: EC 15:04
DX: M79.661 Pain in right lower leg (principal); R22.41 Localized swelling, mass and lump, right lower limb; F17.200 Nicotine dependence, unspecified, uncomplicated; Z96.652 Presence of left artificial knee joint
CPT/HCPCS: 99284; 96372; 36415; 85379; 80053; 85025; 93971; J2270

== ENCOUNTER → 2021-08-12 | Outpatient (CLI) | payer MEDICARE, OTHER ==
--- NOTE | 2021-08-13 08:13 | CT ---
EXAMINATION TYPE: CT angio chest DATE OF EXAM: 08/12/2021 4:25 PM COMPARISON: CT dated 08/06/2019 HISTORY: Thoracic AA w/out rupture CT DLP: 1160 mGycm Automated exposure control for dose reduction was used. CONTRAST: CTA scan of the thorax is performed with IV Contrast, patient injected with 100 mL of Isovue 370, as per thoracic aortic angiogram protocol. MIP and 3-D images were performed and reviewed. FINDINGS: The ascending aorta measures 4 cm compared to 3.9 cm previously. No evidence of aortic dissection. Un remarkable remainder of the thoracic and upper abdominal aorta as well as major mediastinal and upper abdominal arteries. The pulmonary trunk measures 2.9 cm. No gross cardiomegaly. No pleural or perica rdial effusion. No pathologically enlarged lymph nodes in the chest. Stable scattered bilateral calcified and noncalc ified pulmonary nodules. The previous CT scan also reported stability over a 2-year time frame. No ne w suspicious or progressive lung lesion. Patent central airways. Hiatal hernia containing a portion o f the stomach. Degenerative changes in the thoracic spine. IMPRESSION: The ascending aorta measures up to 4 cm compared to 3.9 cm previously. No aortic dissection or other significant thoracic aortic abnormality. No other significant change from the previous CT scan.
== END | disposition home or self-care (01) ==
LOC: RADCTMAIN 15:26
PROVIDERS: ATTEND Surgery
DX: I71.2 Thoracic aortic aneurysm, without rupture (principal)
CPT/HCPCS: 71275

== ENCOUNTER → 2022-01-20 | Outpatient (CLI) | payer MEDICARE ==
[2022-01-20 10:40] LABS: Partial Thromboplastin Time 26.4 sec (22.0-30.0); Prothrombin Time 10.7 sec (9.0-12.0)
[2022-01-20 15:02] LABS: HCT 51.7 % (39.6-50.0); MCH 28.8 pg (27.0-32.0); MCHC 32.9 g/dL (32.0-37.0); MCV 87.6 fL (80.0-97.0); Mean Platelet Volume 11.1 fL (9.5-12.2); NRBC Per 100 WBC 0 /100 WBCS (0.0-0.0); Platelet Count 183 X 10*3/uL (140-440); RDW 13.5 % (11.5-14.5); WBC 7.34 X 10*3/uL (4.50-10.00)
[2022-01-20 15:53] LABS: African American GFR (CKD) 82.4 (60.0-200.0); Albumin 4.5 g/dL (3.8-4.9); Albumin/Globulin Ratio 1.8 (1.60-3.17); Anion Gap 12.5 mmol/L (10.00-18.00); BUN/Creat Ratio 14.27 Ratio (12.00-20.00); Blood Urea Nitrogen 15.7 mg/dL (9.0-27.0); Calcium 9.1 mg/dL (8.7-10.3); Carbon Dioxide 21.5 mmol/L (20.0-27.5); Globulin 2.5 g/dL (1.6-3.3); Non-African American GFR(CKD) 71.1 (60.0-200.0); Potassium 4.3 mmol/L (3.5-5.5); Total Bilirubin 0.6 mg/dL (0.30-1.20)
[2022-01-20 17:12] LABS: Appearance,Urine Clear (Clear); Bilirubin,Urine Negative (Negative); Blood,Urine Negative (Negative); Color,Urine Yellow (Yellow); Ketones,Urine Negative (Negative); Nitrite,Urine Negative (Negative); PH, Urine 5.5 (5.0-8.0); Specific Gravity,Urine 1.008 (1.001-1.030); Urobilinogen,Urine 0.2 (0.2,1.0)
== END | disposition home or self-care (01) ==
LOC: LABPAT 09:30
PROVIDERS: ATTEND Orthopaedic Surgery
DX: Z01.812 Encounter for preprocedural laboratory examination (principal); M17.11 Unilateral primary osteoarthritis, right knee
CPT/HCPCS: 80053; 81003; 85027; 85610; 85730; 87070

== ENCOUNTER 2022-12-24 21:00 | Observation (INO) | payer MEDICARE, OTHER ==
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
[2022-12-24 21:48] LABS: Basophils % (A) 0 %; Eosinophils # (A) 0.2 k/uL (0-0.7); Eosinophils % (A) 3 %; HCT 42.8 % (39.0-53.0); HGB 14.1 gm/dL (13.0-17.5); Lymphocytes # (A) 2.5 k/uL (1.0-4.8); Lymphocytes % (A) 26 %; MCH 29.6 pg (25.0-35.0); MCV 89.9 fL (80.0-100.0); Mean Platelet Volume 8.9; Monocytes # (A) 0.6 k/uL (0-1.0); Monocytes % (A) 6 %; Neutrophils % (A) 64 %; Platelet Count 207 k/uL (150-450); RBC 4.76 m/uL (4.30-5.90); RDW 13.4 % (11.5-15.5); WBC 9.5 k/uL (3.8-10.6)
--- NOTE | 2022-12-24 21:53 | XR ---
EXAMINATION TYPE: XR chest 2V DATE OF EXAM: 12/24/2022 9:43 PM COMPARISON: Chest radiographs from 09/02/2018 TECHNIQUE: XR chest 2V Frontal and lateral views of the chest. CLINICAL INDICATION:Male, 62 years old with history of Chest Pain; FINDINGS: Lungs/Pleura: There is no evidence of pleural effusion, focal consolidation, or pneumothorax. Pulmonary vascularity: Unremarkable. Heart/mediastinum: Cardiomediastinal silhouette is unremarkable. A loop recorder projects over the le ft thorax over the heart. Musculoskeletal: No acute osseous pathology. Midline sternotomy wires are noted. IMPRESSION: 1. No acute cardiopulmonary disease process. 2. COPD changes.
[2022-12-24 22:01] LABS: ALT 35 U/L (4-49); AST 37 U/L (17-59); African American GFR (CKD) 79 (>60 ml/min/1.73 sqM); Albumin 3.8 g/dL (3.5-5.0); Alkaline Phosphatase 55 U/L (38-126); Anion Gap 11 mmol/L; Blood Urea Nitrogen 16 mg/dL (9-20); Calcium 8.3 mg/dL (8.4-10.2); Carbon Dioxide 20 mmol/L (22-30); Chloride 105 mmol/L (98-107); Glucose 88 mg/dL (74-99); Magnesium 1.9 mg/dL (1.6-2.3); Non-African American GFR(CKD) 69 (>60 ml/min/1.73 sqM); Potassium 4.6 mmol/L (3.5-5.1); Sodium 136 mmol/L (137-145); Total Bilirubin 0.7 mg/dL (0.2-1.3)
[2022-12-24 22:03] LABS: INR 0.9 (<1.2); Partial Thromboplastin Time 24.6 sec (22.0-30.0); Prothrombin Time 10.1 sec (9.0-12.0)
[2022-12-24] MEDS ORDERED: NITROGLYCERIN SL TABS 0.4 MG TAB SUBLINGUAL PRN (22:31)
[2022-12-25] MEDS ORDERED: ASPIRIN 325 MG TAB PO SCH (09:00)
[2022-12-25 09:04] VITALS: RESP 18
[2022-12-25 09:18] LABS: Chol/HDL Ratio 5.15 Ratio; LDL Cholesterol,Calculated 76.3 mg/dL (0.0-131.0)
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
[2022-12-25 10:11] VITALS: BP 128/86; PULSE 78; TEMP 98
== END 2022-12-25 10:17 | disposition home or self-care (01) ==
LOC: EC 21:00 → 6NMEDSUR 22:32
PROVIDERS: ADMIT Hospitalist; ATTEND Hospitalist
DX: R07.89 Other chest pain (principal); I10 Essential (primary) hypertension; I25.10 Atherosclerotic heart disease of native coronary artery without angina pectoris; I49.3 Ventricular premature depolarization; G40.909 Epilepsy, unspecified, not intractable, without status epilepticus; J38.7 Other diseases of larynx; E66.9 Obesity, unspecified; Z79.899 Other long term (current) drug therapy; Z68.33 Body mass index [BMI] 33.0-33.9, adult; Z88.0 Allergy status to penicillin; Z86.73 Personal history of transient ischemic attack (TIA), and cerebral infarction without residual deficits; Z86.718 Personal history of other venous thrombosis and embolism; Z87.891 Personal history of nicotine dependence; Z96.652 Presence of left artificial knee joint; Z98.890 Other specified postprocedural states; Z71.3 Dietary counseling and surveillance; Z80.7 Family history of other malignant neoplasms of lymphoid, hematopoietic and related tissues; Z82.49 Family history of ischemic heart disease and other diseases of the circulatory system
CPT/HCPCS: 99285; 36415; 93005 ×2; 80061; 80053; 83735; 84484 ×2; 85025; 85610; 85730; 71046; G0378 ×2

== ENCOUNTER 2023-02-18 18:43 | Observation (INO) | payer MEDICARE, OTHER ==
[2023-02-18] MEDS ORDERED: SODIUM CHLORIDE 0.9% 1,000 ML IV STA (19:00)
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
[2023-02-18 19:20] LABS: Basophils % (A) 0 %; Eosinophils # (A) 0.3 k/uL (0-0.7); Eosinophils % (A) 3 %; HCT 45.8 % (39.0-53.0); HGB 15.3 gm/dL (13.0-17.5); Lymphocytes # (A) 3.8 k/uL (1.0-4.8); Lymphocytes % (A) 41 %; MCH 30.1 pg (25.0-35.0); MCHC 33.4 g/dL (31.0-37.0); MCV 90.1 fL (80.0-100.0); Mean Platelet Volume 8.3; Monocytes # (A) 0.5 k/uL (0-1.0); Monocytes % (A) 6 %; Neutrophils # (A) 4.4 k/uL (1.3-7.7); Neutrophils % (A) 48 %; Platelet Count 178 k/uL (150-450); RBC 5.08 m/uL (4.30-5.90); RDW 13.3 % (11.5-15.5); WBC 9.1 k/uL (3.8-10.6)
[2023-02-18 19:32] LABS: ALT 36 U/L (4-49); AST 39 U/L (17-59); African American GFR (CKD) 53 (>60 ml/min/1.73 sqM); Alcohol 41 mg/dL; Alkaline Phosphatase 52 U/L (38-126); Anion Gap 11 mmol/L; Blood Urea Nitrogen 21 mg/dL (9-20); Calcium 8.8 mg/dL (8.4-10.2); Carbon Dioxide 20 mmol/L (22-30); Chloride 108 mmol/L (98-107); Glucose 126 mg/dL (74-99); Magnesium 2.1 mg/dL (1.6-2.3); Non-African American GFR(CKD) 46 (>60 ml/min/1.73 sqM); Potassium 3.5 mmol/L (3.5-5.1); Sodium 139 mmol/L (137-145); Total Bilirubin 0.7 mg/dL (0.2-1.3); Total Protein 7.1 g/dL (6.3-8.2)
[2023-02-18] MEDS ORDERED: SODIUM CHLORIDE 0.9% 1,000 ML IV ONE (19:32)
[2023-02-18 19:43] LABS: Partial Thromboplastin Time 22.2 sec (22.0-30.0); Prothrombin Time 10.3 sec (9.0-12.0)
--- NOTE | 2023-02-18 20:14 | CT ---
EXAMINATION TYPE: CT chest angio for PE CT DLP: 762.3 mGycm, Automated exposure control for dose reduction was used. DATE OF EXAM: 02/18/2023 8:09 PM COMPARISON: 223 22 mm thick 12/07/2017. CLINICAL INDICATION:Male, 62 years old with history of hypotensive, chest pain, hx aortic aneurysm; d yspnea. TECHNIQUE/CONTRAST: CTA scan of the thorax is performed with IV Contrast, patient injected with 80ml mL of Isovue 370, IN P images are created and reviewed these are created on a separate workstation.. FINDINGS: Pulmonary Artery: There is no evidence for a filling defect within the pulmonary vasculature to sugge st acute pulmonary embolism. The pulmonary artery is of normal size. Lungs/Pleura: Left lower lobe calcified granulomas. No evidence of focal consolidation, pleural effus ion or pneumothorax. Airway: Large airways are patent. Heart: Heart is within normal limits for size. Vasculature: Descending thoracic aorta is within normal limits/borderline ectatic measuring up to 3.9 cm. No evidence of aortic aneurysm. Mediastinum: No gross evidence of adenopathy. Small hiatal hernia. Musculoskeletal: No acute osseous abnormalities Soft Tissues: Unremarkable. Lower neck: No significant findings. Upper Abdomen: Hyperemia of the gallbladder wall mild thickening. IMPRESSION: 1. No evidence for aortic aneurysm. No evidence of pulmonary embolism. 2. Mild gallbladder wall thickening with hyperemia. Correlate for signs and symptoms of cholecystiti s. 3. Mild hiatal hernia. 4. Sequela of chronic Granulomatous disease involving the left lower lung and spleen.
[2023-02-18] MEDS ORDERED: NALOXONE 0.4 MG/ML 1 ML VIAL IV PRN (21:27)
[2023-02-18] MEDS: SODIUM CHLORIDE 0.9% 1,000 ML IV SCH (21:54)
[2023-02-19 04:16] LABS: Basophils % (A) 0 %; Eosinophils # (A) 0.2 k/uL (0-0.7); Eosinophils % (A) 3 %; HCT 42.6 % (39.0-53.0); HGB 14.2 gm/dL (13.0-17.5); Lymphocytes % (A) 29 %; MCH 30.3 pg (25.0-35.0); MCHC 33.2 g/dL (31.0-37.0); Mean Platelet Volume 8.4; Monocytes # (A) 0.4 k/uL (0-1.0); Monocytes % (A) 6 %; Neutrophils # (A) 4.2 k/uL (1.3-7.7); Neutrophils % (A) 61 %; Platelet Count 158 k/uL (150-450); RBC 4.68 m/uL (4.30-5.90); RDW 13.3 % (11.5-15.5); WBC 6.9 k/uL (3.8-10.6)
[2023-02-19 04:27] LABS: African American GFR (CKD) 70 (>60 ml/min/1.73 sqM); Anion Gap 4 mmol/L; Blood Urea Nitrogen 19 mg/dL (9-20); Carbon Dioxide 23 mmol/L (22-30); Chloride 111 mmol/L (98-107); Glucose 134 mg/dL (74-99); Non-African American GFR(CKD) 61 (>60 ml/min/1.73 sqM); Potassium 4.3 mmol/L (3.5-5.1); Sodium 138 mmol/L (137-145)
[2023-02-19] MEDS: SODIUM CHLORIDE 0.9% 1,000 ML IV SCH ×2 (06:36→13:09)
[2023-02-19] MEDS: ASPIRIN 81 MG PO SCH (09:08)
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
--- NOTE | 2023-02-19 14:45 | CA ---
Transthoracic Echo Report Name: Hiram Taylor Age: 62 Gender: M : 1960 Exam Date: 02/19/2023 10:39 Exam Location: [facility] Ht (in): 72 Wt (lb): 250 Ordering Physician: Dunia Nielson Attending/Referring Phys: [id number], Naga Slasher Sawyer Dee Dee Lemons RDCS Procedure CPT: Indications: syncope, chest pain Cardiac Hx: Technical Quality: Fair Contrast 1: Total Dose (mL): Contrast 2: Total Dose (mL): MEASUREMENTS (Male / Female) Normal Values 2D ECHO LV Diastolic Diameter PLAX 5.3 cm 4.2 - 5.9 / 3.9 - 5.3 cm LV Systolic Diameter PLAX 4.0 cm IVS Diastolic Thickness 1.3 cm 0.6 - 1.0 / 0.6 - 0.9 cm LVPW Diastolic Thickness 1.2 cm 0.6 - 1.0 / 0.6 - 0.9 cm LV Relative Wall Thickness 0.5 RV Internal Dim ED PLAX 3.7 cm LA Volume 82.1 cm??? 18 - 58 / 22 - 52 cm??? M-MODE Aortic Root Diameter MM 4.1 cm LA Systolic Diameter MM 4.6 cm LA Ao Ratio MM 1.1 AV Cusp Separation MM 2.0 cm DOPPLER AV Peak Velocity 131.1 cm/s AV Peak Gradient 6.9 mmHg AV Mean Velocity 97.0 cm/s AV Mean Gradient 4.0 mmHg AV Velocity Time Integral 27.7 cm LVOT Peak Velocity 103.5 cm/s LVOT Peak Gradient 4.3 mmHg LVOT Velocity Time Integral 22.0 cm MV Area PHT 2.8 cm??? Mitral E Point Velocity 71.5 cm/s Mitral A Point Velocity 90.1 cm/s Mitral E to A Ratio 0.8 MV Deceleration Time 268.4 ms MV E' Velocity 6.3 cm/s Mitral E to MV E' Ratio 11.4 TR Peak Velocity 219.5 cm/s TR Peak Gradient 19.3 mmHg Right Ventricular Systolic Press 23.3 mmHg FINDINGS Left Ventricle Mildly increased left ventricular wall thickness. Left ventricular cavity size normal. Left ventricular systolic function borderline normal.left ventricular ejection fraction is estimated at 50-55 %. Right Ventricle Moderate right ventricular dilatation. Right ventricular systolic pressure within normal limits. Right Atrium Normal right atrial size. Left Atrium Severely increased left atrial volume. Mildly increased left atrial area. Mitral Valve Structurally normal mitral valve. Mild mitral regurgitation. Aortic Valve No aortic valve stenosis or regurgitation. Tricuspid Valve Structurally normal tricuspid valve. Mild tricuspid regurgitation. Pulmonic Valve Structurally normal pulmonic valve. Pericardium No pericardial effusion. Aorta Normal size aortic root and proximal ascending aorta. CONCLUSIONS 1. Left ventricle systolic function borderline normal 2. Mild mitral and tricuspid regurgitation Previewed by: Dr. Claire Parker MD (Electronically Signed) Final Date: 19 February 2023 14:44
[2023-02-19] MEDS: lisinopriL 5 MG TAB PO SCH (18:28)
[2023-02-20 04:31] VITALS: RESP 17
[2023-02-20] MEDS: ASPIRIN 81 MG PO SCH (07:55)
[2023-02-20] MEDS: lisinopriL 5 MG TAB PO SCH (07:55)
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
[2023-02-20 08:06] VITALS: BP 144/79; PULSE 77; TEMP 97.6
[2023-02-20] MEDS ORDERED: lisinopriL 5 MG TAB PO ONE (08:15)
--- NOTE | 2023-02-20 08:21 | P.DS ---
Providers Date of admission: 02/18/23 21:29 Expected date of discharge: 02/20/23 Attending physician: Leonides Rodriguez Consults: 02/18/23 21:27 Consult Physician Urgent Consulting Provider: [facility] Consult Reason/Comments: acute chest pain, syncope, hypotension Do you want consulting provider notified?: Yes Primary care physician: [facility] Course: 62-year-old male with past medical history of "lingual dystonia with syncope" who presents to the emergency Department after syncopal episode. He states that he does have frequent syncopal episodes however it is usually preceded by a coughing fit. He has been told that this is due to lingual dystonia where his vocal cords will spasm and will cut off his airway. Because of this he does have chronic hoarseness and gets Botox injections. States that his last injection was 3 weeks ago. Today the [place] he had a sudden syncopal episode. He was sitting in his chair and woke up and his chair to EMS in front of him. He is unsure how long he was out for. He denies any trauma. EMS found the patient to have a low blood pressure. He was also complaining of chest pain which is atypical for him. He was given a 250 fluid bolus followed by a post dose of epi. He was also given 324 mg of aspirin. Patient admits that he was just recently hospitalized for chest pain. He was going to follow up with his primary care doctor to have stress testing performed however has yet to obtain this. Computer medical history does demonstrate that he has a history of thoracic aneurysm. He denies any numbness, tingling or weakness in his extremities. No history of DVT or PE. No calf pain or swelling. No fevers or chills. No other alleviating, precipitating or modifying factors Troponin was negative 1. There is evidence of acute kidney injury with a BUN of 21 and creatinine 1.57. Labs this morning show improvement in renal function with a BUN of 19 and creatinine 1.25. EKG shows sinus mechanism with evidence of prior inferior [place] but no evidence of acute ischemia. 1. Acute syncope; likely related to hypotension - Patient was found to be hypotensive and was given 1 L of IV fluid bolus; syncopal episode likely related to hypovolemia - Patient has been placed on IV fluids in form of normal saline at rate of 130 mL an hour - We will keep patient on telemetry for 24 hours to rule out arrhythmias 2. Chest pain; patient is chest pain-free; troponin is negative; EKG does not reveal any acute ST or T-wave changes - Recommend obtaining a 2-D echo; cardiology is consulted 3. Hypotension; likely volume depletion; hold off on home antihypertensive medications; continue with IV fluids 4. Hypertension; patient takes lisinopril 20 mg daily; we will hold for now until blood pressure improves 5. Coronary artery disease; last catheterization completed in 2018 and was found to have mild disease in first OM 6. History of cough-induced syncope; patient follows up for Botox injections at [facility] 7. History of TIA/CVA; takes aspirin 81 mg daily; not on any statin therapy Hypotension resolved with IV fluids; IV fluids were discontinued and patient was placed on reduced dose of lisinopril at 5 mg daily; blood pressure remains elevated; we will increase lisinopril to 10 mg daily; discharge patient home and follow-up with PCP for further adjustment in antihypertensive therapy Patient Condition at Discharge: Serious Plan - Discharge Summary New Discharge Prescriptions: New lisinopriL [Zestril] 10 mg PO DAILY 30 Days #30 tab Continue Aspirin 81 mg PO DAILY 30 Days #30 tab Cyclobenzaprine [Flexeril] 10 mg PO TID PRN PRN Reason: Muscle Spasm Discontinued lisinopriL [Prinivil] 20 mg PO DAILY Discharge Medication List Aspirin 81 mg PO DAILY 30 Days #30 tab 12/25/22 [Rx] Cyclobenzaprine [Flexeril] 10 mg PO TID PRN 02/18/23 [History] lisinopriL [Zestril] 10 mg PO DAILY 30 Days #30 tab 02/20/23 [Rx] Follow up Appointment(s)/Referral(s): Darien Ford MD [Primary Care Provider] - 1-2 days Discharge Disposition: HOME SELF-CARE
[2023-02-20 09:41] LABS: BUN/Creat Ratio 12.75 Ratio (12.00-20.00); Blood Urea Nitrogen 15.3 mg/dL (9.0-27.0); Calcium 8.4 mg/dL (8.7-10.3); Carbon Dioxide 22.7 mmol/L (21.6-31.8); Chloride 109 mmol/L (96-109); Glucose 99 mg/dL (70-110); Potassium 4.6 mmol/L (3.5-5.5); Sodium 141 mmol/L (135-145)
[2023-02-21] MEDS ORDERED: lisinopriL 10 MG TAB PO SCH (09:00)
== END 2023-02-20 11:21 | disposition home or self-care (01) ==
LOC: EC 18:43 → 6NMEDSUR 21:29
PROVIDERS: ADMIT Internal Medicine; ATTEND Internal Medicine
DX: R55 Syncope and collapse (principal); R07.89 Other chest pain; I95.9 Hypotension, unspecified; R79.89 Other specified abnormal findings of blood chemistry; G24.9 Dystonia, unspecified; I71.20 Thoracic aortic aneurysm, without rupture, unspecified; N17.9 Acute kidney failure, unspecified; I25.2 Old myocardial infarction; I10 Essential (primary) hypertension; I25.10 Atherosclerotic heart disease of native coronary artery without angina pectoris; G40.909 Epilepsy, unspecified, not intractable, without status epilepticus; Z79.899 Other long term (current) drug therapy; Z79.82 Long term (current) use of aspirin; Z86.73 Personal history of transient ischemic attack (TIA), and cerebral infarction without residual deficits; Z87.891 Personal history of nicotine dependence; Z88.1 Allergy status to other antibiotic agents; Z80.7 Family history of other malignant neoplasms of lymphoid, hematopoietic and related tissues
CPT/HCPCS: 96361 ×2; 99285; 36415; 93005; 93306; 85379; 80053; 80048 ×2; 83735; 84484 ×2; 85025 ×2; 85610; 85730; 71275; G0378 ×3; G0480; Q9967; 80320